=== PATIENT | male | born 1990 | race African-American/Black ===

== ENCOUNTER 2017-01-12 21:16 | Inpatient (IN) | payer OTHER ==
[2017-01-12 21:32] VITALS: BMI 26.4
--- NOTE | 2017-01-12 21:52 | HP ---
COWS - Scale Resting Pulse: 0= ID 80 or Below Sweatin=Flushed/Facial Moisture Restless Observation: 5= Unable to Sit Still Pupil Size: 1= Pupils >than Normal Bone or Joint Aches: 1= Mild Discomfort Runny Nose/ Eye Tearin= Runny Nose/Eyes GI Upset > 30mins: 0= None Tremor Observation: 1= Tremor [place], Not Seen Yawning Observation: 4= Several Times/Minute Anxiety or Irritability: 2=Irritable/Anxious Goose Flesh Skin: 0=Smooth Skin COWS Score: 18 Admission ROS S - HPI Chief Complaint: C/O WITHDRAWAL SX'S. SEEKING DETOX TXMENT Allergies/Adverse Reactions: Allergies Allergy/AdvReac Type Severity Reaction Status Date / Time No Known Allergies Allergy Verified 01/12/17 21:46 History of Present Illness: 26 Y.O. MALE WITH OPIOID DEPENDENCE ADMITTED TO DETOX. THIS IS CLIENT FIRST TIME IN DETOX. DENIES ANY SIGNIFICANT PERIOD OF CLEAN TIME. Exam Limitations: No Limitations - Ebola screening Have you traveled outside of the country in the last 21 days: No (N) Have you had contact with anyone from an Ebola affected area: No Have you been sick,other than usual withdrawal symptoms: No Do you have a fever: No - Review of Systems Constitutional: Night Sweats EENT: reports: No Symptoms Reported Respiratory: reports: No Symptoms reported Cardiac: reports: No Symptoms Reported GI: reports: No Symptoms Reported : reports: No Symptoms Reported Musculoskeletal: reports: No Symptoms Reported Integumentary: reports: No Symptoms Reported Neuro: reports: No Symptoms reported Endocrine: reports: No Symptoms Reported Hematology: reports: No Symptoms Reported Psychiatric: reports: No Sypmtoms Reported Other Systems: Reviewed and Negative Patient History - Patient Medical History Hx Anemia: No Hx Asthma: No Hx Chronic Obstructive Pulmonary Disease (COPD): No Hx Cancer: No Hx Cardiac Disorders: No Hx Congestive Heart Failure: No Hx Hypertension: No Hx Hypercholesterolemia: No Hx Pacemaker: No HX Cerebrovascular Accident: No Hx Seizures: No Hx Dementia: No Hx Diabetes: No Hx Gastrointestinal Disorders: No Hx Liver Disease: No Hx Genitourinary Disorders: No Hx Sexually Transmitted Disorders: No Hx Renal Disease (ESRD): No Hx Thyroid Disease: No Hx Human Immunodeficiency Virus (HIV): No Hx Hepatitis C: No Hx Depression: No Hx Suicide Attempt: No Hx Bipolar Disorder: No Hx Schizophrenia: No Other Medical History: DENIES - Patient Surgical History Past Surgical History: No - PPD History Previous Implant?: Yes Documented Results: Negative w/o proof Implanted On Prior R Admission?: No PPD to be Administered?: Yes - Smoking Cessation Smoking history: Current every day smoker Have you smoked in the past 12 months: Yes Aproximately how many cigarettes per day: 20 Cigars Per Day: 0 Hx Chewing Tobacco Use: No Initiated information on smoking cessation: Yes 'Breaking Loose' booklet given: 01/12/17 - Substance & Tx. History Hx Alcohol Use: No Hx Substance Use: Yes Substance Use Type: Cocaine, Heroin, Tranquilizers (PCP) Hx Substance Use Treatment: No - Substances Abused HEROIN Route: Inhalation Frequency: Daily Amount used: 6 BAGS Age of first use: 17 Date of Last Use: 01/12/17 (5 BAGS) COCAINE Route: Smoking Frequency: 3-6 times per week Amount used: $20 Age of first use: 26 Date of Last Use: 01/11/17 Family Disease History - Family Disease History Family Disease History: CA: Mother (BRAIN CA ) Admission Physical Exam S - Vital Signs Vital Signs: Vital Signs - 24 hr 01/12/17 21:28 Temperature 95.7 F L Pulse Rate 74 Respiratory 18 Rate Blood Pressure 121/69 - Physical General Appearance: Yes: Disheveled, Mild Distress, Anxious, Other (MALODUROUS) HEENTM: Yes: EOMI, Normocephalic, RUSSEL, Pharynx Normal Respiratory: Yes: Chest Non-Tender, Lungs Clear, Normal Breath Sounds, No Respiratory Distress, No Accessory Muscle Use Neck: Yes: No masses,lesions,Nodules, Supple, Trachea in good position Breast: Yes: Breast Exam Deferred Cardiology: Yes: Regular Rhythm, Regular Rate, S1, S2 Abdominal: Yes: Normal Bowel Sounds, Non Tender, Flat, Soft Genitourinary: Yes: Within Normal Limits Back: Yes: Normal Inspection Extremities: Yes: Normal Range of Motion, Non-Tender, Tremors 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 intact, Fully Oriented, Alert, Motor Strength 5/5 Integumentary: Yes: Normal Color, Dry, Warm Lymphatic: Yes: Within Normal Limits - Diagnostic (1) Opioid dependence with withdrawal Current Visit: Yes Status: Chronic (2) Cocaine dependence, uncomplicated Current Visit: Yes Status: Chronic (3) Nicotine dependence Current Visit: Yes Status: Chronic Qualifiers: Nicotine product type: cigarettes Substance use status: uncomplicated Qualified Code(s): F17.210 - Nicotine dependence, cigarettes, uncomplicated Cleared for Admission [facility] - Detox or Rehab [facility] Level of Care: Medically Managed Detox Regimen/Protocol: Methadone [facility] Breath Alcohol Content Breath Alcohol Content: 0 Urine Drug Screen - Results Drug Screen Negative: No Urine Drug Screen Results: BRENDA-Cocaine, OPI-Opiates, PCP-Phencyclidine
[2017-01-12] MEDS ORDERED: guaiFENesin/D-METHORPHAN HB 10 ML UNIT-DOSE CUPS PO PRN (21:59)
[2017-01-12] MEDS ORDERED: NICOTINE POLACRILEX 2 MG GUM BC PRN (21:59)
[2017-01-12] MEDS ORDERED: METHADONE HCL 10 MG TABLET (FOR DETOX USE ONLY) PO ONE ×2 (21:59→23:00)
[2017-01-12] MEDS ORDERED: hydrOXYzine PAMOATE 50 MG CAPSULE (FP) PO PRN (21:59)
[2017-01-12] MEDS ORDERED: MAGNESIUM HYDROX 2400MG/30ML ORAL SUSPENSION 30 ML CUP PO PRN (21:59)
[2017-01-12] MEDS ORDERED: MAGNESIUM CITRATE 300 ML BOTTLE PO PRN (21:59)
[2017-01-12] MEDS ORDERED: ACETAMINOPHEN 325 MG TABLET (FP) PO PRN (21:59)
[2017-01-12] MEDS ORDERED: LOPERAMIDE HCL 2 MG CAPSULE PO PRN (21:59)
[2017-01-12] MEDS ORDERED: IBUPROFEN 400 MG TABLET (FP) PO PRN (21:59)
[2017-01-12] MEDS ORDERED: MENTHOL/PHENOL 1 EACH UD MM PRN (21:59)
[2017-01-12] MEDS ORDERED: P-EPHED 60MG/TRIPROLIDI 2.5MG TABLET PO PRN (21:59)
[2017-01-12] MEDS ORDERED: MAG HYDROX/AL HYDROX/SIMETH 30 ML UNIT-DOSE CUP PO PRN (21:59)
[2017-01-12] MEDS: THIAMINE HCL 100 MG TABLET (FP) PO SCH (23:17)
[2017-01-12] MEDS: diazePAM 5 MG TABLET PO PRN (23:17)
[2017-01-12] MEDS: NICOTINE 21 MG/24 HOURS TOPICAL PATCH TD SCH (23:17)
[2017-01-12] MEDS: diphenhydrAMINE HCL 50 MG CAPSULE PO PRN (23:23)
[2017-01-13] MEDS ORDERED: METHADONE HCL 10 MG TABLET (FOR DETOX USE ONLY) PO ONE (10:00)
[2017-01-13] MEDS: PRENATAL VITAMINS W/ FOLIC ACID TABLET (FP) PO SCH (10:11)
[2017-01-13] MEDS: NICOTINE 21 MG/24 HOURS TOPICAL PATCH TD SCH (10:12)
[2017-01-13 10:42] LABS: MCH 29.8 pg (25.7-33.7); MCHC 32.7 g/dl (32.0-35.9); MEAN CELL VOLUME 91.2 fl (80-96); MEAN PLT VOLUME 8.1 fl (7.5-11.1); PLATELET COUNT 268 K/MM3 (134-434); WHITE BLOOD COUNT 6.3 K/mm3 (4.0-10.0)
[2017-01-13 10:46] LABS: ALBUMIN 3.2 g/dl (3.4-5.0); ANION GAP 7 (8-16); CALCIUM 8.6 mg/dL (8.5-10.1); CO2 27 mmol/L (21-32); GLUCOSE,RANDOM 81 mg/dL (74-106); SGOT/AST 22 U/L (15-37)
[2017-01-13 10:48] LABS: ALK PHOS 65 U/L (45-117); BILIRUBIN,TOTAL 0.4 mg/dL (0.2-1.0); CREATININE 0.9 mg/dL (0.7-1.3); SGPT/ALT 25 U/L (12-78); TOT PROT 6.1 g/dl (6.4-8.2)
--- NOTE | 2017-01-13 11:10 | PN ---
S COWS - Scale Resting Pulse: 0= [place] 80 or Below Sweatin=Flushed/Facial Moisture Restless Observation: 3= Extraneous Movement Pupil Size: 1= Pupils >than Normal Bone or Joint Aches: 2= Severe Diffuse Aches Runny Nose/ Eye Tearin= Runny Nose/Eyes GI Upset > 30mins: 3= Vomiting/Diarrhea Tremor Observation of Outstretched Hands: 2= Slight Tremor Visible Yawning Observation: 2= >3x During Session Anxiety or Irritability: 2=Irritable/Anxious Goose Flesh Skin: 0=Smooth Skin COWS Score: 19 S Progress Note (SOAP) Subjective: ALERT,IRRITABLE,ANXIOUS,INTERRUPTED SLEEP,TREMOR,PAIN IN THE BODY AND BACK Objective: 01/13/17 11:08 Vital Signs Temperature 97.9 F 01/13/17 06:00 Pulse Rate 50 L 01/13/17 06:00 Respiratory Rate 18 01/13/17 06:00 Blood Pressure 128/84 01/13/17 06:00 O2 Sat by Pulse Oximetry (%) EKG NSR,INVERTED T IN V2 Laboratory Last Values WBC 6.3 K/mm3 (4.0-10.0) 01/13/17 08:00 RBC 4.22 M/mm3 (4.00-5.60) 01/13/17 08:00 Hgb 12.6 GM/dL (11.7-16.9) 01/13/17 08:00 Hct 38.5 % (35.4-49) 01/13/17 08:00 MCV 91.2 fl (80-96) 01/13/17 08:00 MCHC 32.7 g/dl (32.0-35.9) 01/13/17 08:00 RDW 14.0 % (11.9-15.9) 01/13/17 08:00 Plt Count 268 K/MM3 (134-434) 01/13/17 08:00 MPV 8.1 fl (7.5-11.1) 01/13/17 08:00 Sodium 141 mmol/L (136-145) 01/13/17 08:00 Potassium 4.4 mmol/L (3.5-5.1) 01/13/17 08:00 Chloride 107 mmol/L (98-107) 01/13/17 08:00 Carbon Dioxide 27 mmol/L (21-32) 01/13/17 08:00 Anion Gap 7 (8-16) L 01/13/17 08:00 BUN 20 mg/dL (7-18) H 01/13/17 08:00 Creatinine 0.9 mg/dL (0.7-1.3) 01/13/17 08:00 Creat Clearance w eGFR > 60 (>60) 01/13/17 08:00 Random Glucose 81 mg/dL (74-106) 01/13/17 08:00 Calcium 8.6 mg/dL (8.5-10.1) 01/13/17 08:00 Total Bilirubin 0.4 mg/dL (0.2-1.0) 01/13/17 08:00 AST 22 U/L (15-37) 01/13/17 08:00 ALT 25 U/L (12-78) 01/13/17 08:00 Alkaline Phosphatase 65 U/L (45-117) 01/13/17 08:00 Total Protein 6.1 g/dl (6.4-8.2) L 01/13/17 08:00 Albumin 3.2 g/dl (3.4-5.0) L 01/13/17 08:00 LABS PENDING Assessment: 01/13/17 11:09 WITHDRAWAL SYMPTOM Plan: CONTINUE DETOX
--- NOTE | 2017-01-13 18:24 | EKG ---
Test Reason : Blood Pressure : / mmHG Vent. Rate : 061 BPM Atrial Rate : 061 BPM P-R Int : 174 ms QRS Dur : 098 ms QT Int : 394 ms P-R-T Axes : 061 072 047 degrees QTc Int : 396 ms NORMAL SINUS RHYTHM SEPTAL INFARCT , AGE UNDETERMINED ABNORMAL ECG NO PREVIOUS ECGS AVAILABLE Confirmed by DAVID HERRERA MD ([id number]) on 01/13/2017 6:24:29 PM Referred By: Confirmed By:DAVID HERRERA MD
[2017-01-13] MEDS: THIAMINE HCL 100 MG TABLET (FP) PO SCH (23:08)
[2017-01-14] MEDS ORDERED: METHADONE HCL 5 MG TABLET (FOR DETOX USE ONLY) PO ONE (10:00)
[2017-01-14] MEDS: PRENATAL VITAMINS W/ FOLIC ACID TABLET (FP) PO SCH (10:42)
[2017-01-14] MEDS: NICOTINE 21 MG/24 HOURS TOPICAL PATCH TD SCH (10:43)
--- NOTE | 2017-01-14 15:15 | PN ---
BHS COWS - Scale Resting Pulse: 0= [place] 80 or Below Sweatin= Chills/Flushing Restless Observation: 3= Extraneous Movement Pupil Size: 0= Normal to Room Light Bone or Joint Aches: 2= Severe Diffuse Aches Runny Nose/ Eye Tearin= Runny Nose/Eyes GI Upset > 30mins: 2= Nausea/Diarrhea Tremor Observation of Outstretched Hands: 2= Slight Tremor Visible Yawning Observation: 0= None Anxiety or Irritability: 1=Feels Anxious/Irritable Goose Flesh Skin: 0=Smooth Skin COWS Score: 13 BHS Progress Note (SOAP) Subjective: Nausea, sweating, interrupted sleep, anxious Objective: 01/14/17 15:14 Last Vital Signs Temp Pulse Resp BP Pulse Ox 98.2 F 71 18 137/80 01/14/17 13:56 01/14/17 13:56 01/14/17 13:56 01/14/17 13:56 Laboratory Tests 01/13/17 01/13/17 01/13/17 08:00 08:00 08:00 WBC 6.3 RBC 4.22 Hgb 12.6 Hct 38.5 MCV 91.2 MCHC 32.7 RDW 14.0 Plt Count 268 MPV 8.1 Sodium 141 Potassium 4.4 Chloride 107 Carbon Dioxide 27 Anion Gap 7 L BUN 20 H Creatinine 0.9 Creat Clearance w eGFR > 60 Random Glucose 81 Calcium 8.6 Total Bilirubin 0.4 AST 22 ALT 25 Alkaline Phosphatase 65 Total Protein 6.1 L Albumin 3.2 L RPR Titer Nonreactive Labs noted Assessment: 01/14/17 15:14 Withdrawal symptoms Plan: Continue detox
[2017-01-14] MEDS: diazePAM 5 MG TABLET PO PRN ×2 (17:31→23:49)
[2017-01-14] MEDS: THIAMINE HCL 100 MG TABLET (FP) PO SCH (23:11)
[2017-01-15] MEDS ORDERED: METHADONE HCL 5 MG TABLET (FOR DETOX USE ONLY) PO ONE (10:00)
[2017-01-15] MEDS: NICOTINE 21 MG/24 HOURS TOPICAL PATCH TD SCH (10:07)
[2017-01-15] MEDS: PRENATAL VITAMINS W/ FOLIC ACID TABLET (FP) PO SCH (10:08)
[2017-01-15] MEDS: diazePAM 5 MG TABLET PO PRN ×4 (10:08→21:56)
--- NOTE | 2017-01-15 10:42 | PN ---
BHS Progress Note (SOAP) Subjective: irritable agitation headache sweats Objective: 01/15/17 10:42 Vital Signs Temperature 98.1 F 01/15/17 10:00 Pulse Rate 71 01/15/17 10:00 Respiratory Rate 20 01/15/17 10:00 Blood Pressure 133/85 01/15/17 10:00 O2 Sat by Pulse Oximetry (%) awake/alert lying in bed no acute distress Assessment: 01/15/17 10:42 withdrawal sx Plan: continue detox increase fluids motrin/tylenol prn
[2017-01-15 17:08] LABS: URINE APPEARANCE CLEAR; URINE BILIRUBIN NEGATIVE (NEGATIVE); URINE BLOOD NEGATIVE (NEGATIVE); URINE COLOR LTYELLOW; URINE GLUCOSE (UA) NEGATIVE (NEGATIVE); URINE KETONE NEGATIVE (NEGATIVE); URINE LEUK ESTERASE NEGATIVE (NEGATIVE); URINE NITRITE NEGATIVE (NEGATIVE); URINE PROTEIN NEGATIVE (NEGATIVE); URINE UROBILINOGEN NEGATIVE E.U./dl (0.2-1.0)
[2017-01-15] MEDS: diphenhydrAMINE HCL 50 MG CAPSULE PO PRN (21:56)
[2017-01-15] MEDS: THIAMINE HCL 100 MG TABLET (FP) PO SCH (21:57)
[2017-01-16] MEDS ORDERED: METHADONE HCL 10 MG TABLET (FOR DETOX USE ONLY) PO ONE (10:00)
[2017-01-16] MEDS: NICOTINE 21 MG/24 HOURS TOPICAL PATCH TD SCH (10:09)
[2017-01-16] MEDS: PRENATAL VITAMINS W/ FOLIC ACID TABLET (FP) PO SCH (10:09)
--- NOTE | 2017-01-16 10:29 | PN ---
S Progress Note (SOAP) Subjective: ALERT,IRRITABLE,ANXIOUS,INTERRUPTED SLEEP Objective: 01/16/17 10:28 Vital Signs Temperature 98.4 F 01/16/17 09:55 Pulse Rate 77 01/16/17 09:55 Respiratory Rate 16 01/16/17 09:55 Blood Pressure 138/66 01/16/17 09:55 O2 Sat by Pulse Oximetry (%) Assessment: 01/16/17 10:29 WITHDRAWAL SYMPTOM Plan: DISCHARGE IN AM
[2017-01-16] MEDS: THIAMINE HCL 100 MG TABLET (FP) PO SCH (21:48)
[2017-01-17] MEDS ORDERED: METHADONE HCL 5 MG TABLET (FOR DETOX USE ONLY) PO ONE (06:00)
[2017-01-17 06:42] VITALS: BP 139/80; PULSE 68; TEMP 98
--- NOTE | 2017-01-17 08:40 | DS ---
[facility] Detox Discharge Summary Admission Date: 01/12/17 Discharge Date: 01/17/17 - History Present History: Cocaine Dependence, Opioid Dependence - Physical Exam Results Vital Signs: Vital Signs Temperature 98 F 01/17/17 06:42 Pulse Rate 68 01/17/17 06:42 Respiratory Rate 18 01/17/17 06:42 Blood Pressure 139/80 01/17/17 06:42 O2 Sat by Pulse Oximetry (%) - Treatment Hospital Course: Detox Protocol Followed, Detoxed Safely, Responded well, Discharged Condition Good, Rehab Referral Accepted - Medication Discharge Medications: Ambulatory Orders NK [No Known Home Medication] 01/12/17 - Diagnosis (1) Cocaine dependence, uncomplicated Current Visit: Yes Status: Chronic (2) Nicotine dependence Current Visit: Yes Status: Chronic Qualifiers: Nicotine product type: cigarettes Substance use status: uncomplicated Qualified Code(s): F17.210 - Nicotine dependence, cigarettes, uncomplicated (3) Opioid dependence with withdrawal Current Visit: Yes Status: Chronic - AMA Did Patient Leave Against Medical Advice: No
== END 2017-01-17 09:55 | disposition home or self-care (01) | DRG 773 ==
LOC: YASAS 21:16 → Y6N 22:06
PROVIDERS: ADMIT Internal Medicine; ATTEND Internal Medicine
PROC: HZ2ZZZZ Detoxification Services for Substance Abuse Treatment (ICD-10-PCS; principal; 2017-01-12)
DX: F11.23 Opioid dependence with withdrawal (principal); F14.20 Cocaine dependence, uncomplicated; F17.210 Nicotine dependence, cigarettes, uncomplicated
CPT/HCPCS: 36415; 80053; 81003; 85027; 86593; 93005; 93010

== ENCOUNTER 2017-03-06 00:30 | Inpatient (IN) | payer OTHER ==
--- NOTE | 2017-03-06 00:39 | HP ---
COWS - Scale Resting Pulse: 0= [place] 80 or Below Sweatin=Flushed/Facial Moisture Restless Observation: 5= Unable to Sit Still Pupil Size: 1= Pupils >than Normal Bone or Joint Aches: 4=Acute Joint/Muscle Pain Runny Nose/ Eye Tearin= None GI Upset > 30mins: 2= Nausea/Diarrhea Tremor Observation: 2= Slight Tremor Visible Yawning Observation: 0= None Anxiety or Irritability: 2=Irritable/Anxious Goose Flesh Skin: 0=Smooth Skin COWS Score: 18 Admission ROS S - HPI Chief Complaint: c/o herione abuse and withdrawal sx's. seeking detox txment Allergies/Adverse Reactions: Allergies Allergy/AdvReac Type Severity Reaction Status Date / Time No Known Allergies Allergy Verified 03/06/17 00:34 History of Present Illness: 27 Y.O. MALE WITH OPIATE, COCAINE, PCP DEPENDENCE ADMITTED FOR DETOX TXMENT. CLIENT IS KNOWN TO [facility]. LAST HERE 12/2016. SELF REFERRED. DENIES ANY SIGNIFICANT CLEAN TIME. Exam Limitations: No Limitations - Ebola screening Have you traveled outside of the country in the last 21 days: No Have you had contact with anyone from an Ebola affected area: No Have you been sick,other than usual withdrawal symptoms: No Do you have a fever: No - Review of Systems Constitutional: Chills, Malaise, Night Sweats EENT: reports: No Symptoms Reported, Other Respiratory: reports: No Symptoms reported Cardiac: reports: No Symptoms Reported GI: reports: Nausea, Abdominal cramping Musculoskeletal: reports: No Symptoms Reported Integumentary: reports: No Symptoms Reported Neuro: reports: No Symptoms reported Endocrine: reports: No Symptoms Reported Hematology: reports: No Symptoms Reported Psychiatric: reports: Anxious, Depressed Other Systems: Reviewed and Negative Patient History - Patient Medical History Hx Anemia: No Hx Asthma: No Hx Chronic Obstructive Pulmonary Disease (COPD): No Hx Cancer: No Hx Cardiac Disorders: No Hx Congestive Heart Failure: No Hx Hypertension: No Hx Hypercholesterolemia: No Hx Pacemaker: No HX Cerebrovascular Accident: No Hx Seizures: No Hx Dementia: No Hx Diabetes: No Hx Gastrointestinal Disorders: No Hx Liver Disease: No Hx Genitourinary Disorders: No Hx Sexually Transmitted Disorders: No Hx Renal Disease (ESRD): No Hx Thyroid Disease: No Hx Human Immunodeficiency Virus (HIV): No Hx Hepatitis C: No Hx Depression: Yes Hx Suicide Attempt: No Hx Bipolar Disorder: No Hx Schizophrenia: No - Patient Surgical History Past Surgical History: No Hx Neurologic Surgery: No Hx Cataract Extraction: No Hx Cardiac Surgery: No Hx Lung Surgery: No Hx Breast Surgery: No Hx Breast Biopsy: No Hx Abdominal Surgery: No Hx Appendectomy: No Hx Cholecystectomy: No Hx Genitourinary Surgery: No Hx Section: No Hx Orthopedic Surgery: No Anesthesia Reaction: No - PPD History Previous Implant?: Yes Documented Results: Negative w/proof Implanted On Prior [facility] Admission?: Yes Date: 01/14/17 Results: 0MM PPD to be Administered?: No - Smoking Cessation Smoking history: Current every day smoker Have you smoked in the past 12 months: Yes Aproximately how many cigarettes per day: 20 Cigars Per Day: 0 Hx Chewing Tobacco Use: No Initiated information on smoking cessation: Yes 'Breaking Loose' booklet given: 03/06/17 - Substance & Tx. History Hx Alcohol Use: No Hx Substance Use: Yes Substance Use Type: Cocaine, Heroin, Tranquilizers (PCP) Hx Substance Use Treatment: Yes ([facility]) - Substances Abused HEROINE Route: Inhalation Frequency: Daily Amount used: 15 BAGS Age of first use: 14 Date of Last Use: 03/05/17 (7 BAGS) COCAINE Route: Inhalation Frequency: 3-6 times per week Amount used: 1GM Age of first use: 23 Date of Last Use: 03/10/17 PCP Route: Smoking Frequency: 3-6 times per week Amount used: 2 BAGS Age of first use: 20 Date of Last Use: 03/03/17 Family Disease History - Family Disease History Family Disease History: [place]: Mother (BRAIN CA ) Admission Physical Exam [facility] Physical General Appearance: Yes: Disheveled, Tremorous, Irritable, Anxious HEENTM: Yes: EOMI, Normocephalic, Pharynx Normal, Other (POOR DENTITION) Respiratory: Yes: Chest Non-Tender, Lungs Clear, Normal Breath Sounds, No Respiratory Distress, No Accessory Muscle Use Neck: Yes: No masses,lesions,Nodules, Supple, Trachea in good position Breast: Yes: Breast Exam Deferred Cardiology: Yes: Regular Rhythm, Regular Rate, S1, S2 Abdominal: Yes: Normal Bowel Sounds, Non Tender, Flat, Soft Genitourinary: Yes: Within Normal Limits Back: Yes: Normal Inspection Musculoskeletal: Yes: full range of Motion, Gait Steady Extremities: Yes: Normal Range of Motion, Tremors 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, Fully Oriented, Alert, Motor Strength 5/5 Integumentary: Yes: Normal Color, Dry, Warm Lymphatic: Yes: Within Normal Limits - Diagnostic (1) Cocaine dependence, uncomplicated Current Visit: Yes Status: Chronic (2) Nicotine dependence Current Visit: Yes Status: Chronic Qualifiers: Nicotine product type: cigarettes Substance use status: uncomplicated Qualified Code(s): F17.210 - Nicotine dependence, cigarettes, uncomplicated (3) Opioid dependence with withdrawal Current Visit: Yes Status: Chronic Cleared for Admission S - Detox or Rehab S Level of Care: Medically Managed Detox Regimen/Protocol: Methadone S Breath Alcohol Content Breath Alcohol Content: 0 Vital Signs - Vital Signs Vital Signs Refused: No Temperature: 98.4 F Temperature Source: Oral Pulse Rate: 74 Respiratory Rate: 20 Blood Pressure: 141/86 BP Location: Left Arm Blood Pressure Position: Sitting - Height Height: 5 ft 11 in - Weight Weight: 97.522 kg Weight Measurement Method: Standing Scale Body Mass Index (BMI): 29.9 - Bowel Function Bowel Movement: Yes Urine Drug Screen - Test Device Lot Number: [id number] Expiration Date: 09/20/18 - Control Is Test Valid: Yes - Results Drug Screen Negative: No Urine Drug Screen Results: BRENDA-Cocaine, OPI-Opiates, PCP-Phencyclidine
[2017-03-06 00:45] VITALS: BMI 29.9
[2017-03-06] MEDS ORDERED: MAG HYDROX/AL HYDROX/SIMETH 30 ML UNIT-DOSE CUP PO PRN (00:48)
[2017-03-06] MEDS ORDERED: MENTHOL/PHENOL 1 EACH UD MM PRN (00:48)
[2017-03-06] MEDS ORDERED: MAGNESIUM CITRATE 300 ML BOTTLE PO PRN (00:48)
[2017-03-06] MEDS ORDERED: hydrOXYzine PAMOATE 50 MG CAPSULE (FP) PO PRN (00:48)
[2017-03-06] MEDS ORDERED: METHADONE HCL 10 MG TABLET (FOR DETOX USE ONLY) PO ONE ×3 (00:48→23:00)
[2017-03-06] MEDS ORDERED: P-EPHED 60MG/TRIPROLIDI 2.5MG TABLET PO PRN (00:48)
[2017-03-06] MEDS ORDERED: LOPERAMIDE HCL 2 MG CAPSULE PO PRN (00:48)
[2017-03-06] MEDS ORDERED: IBUPROFEN 400 MG TABLET (FP) PO PRN (00:48)
[2017-03-06] MEDS ORDERED: MAGNESIUM HYDROX 2400MG/30ML ORAL SUSPENSION 30 ML CUP PO PRN (00:48)
[2017-03-06] MEDS ORDERED: ACETAMINOPHEN 325 MG TABLET (FP) PO PRN (00:48)
[2017-03-06] MEDS ORDERED: diazePAM 5 MG TABLET ONE (01:02)
[2017-03-06] MEDS: diazePAM 5 MG TABLET PO PRN ×3 (01:04→19:16)
[2017-03-06] MEDS: PRENATAL VITAMINS W/ FOLIC ACID TABLET (FP) PO SCH (10:23)
[2017-03-06] MEDS: NICOTINE 21 MG/24 HOURS TOPICAL PATCH TD SCH ×2 (10:23→11:10)
[2017-03-06 10:36] LABS: MCH 30.5 pg (25.7-33.7); MCHC 33.1 g/dl (32.0-35.9); MEAN CELL VOLUME 92.1 fl (80-96); MEAN PLT VOLUME 8.7 fl (7.5-11.1); PLATELET COUNT 290 K/MM3 (134-434); RDW 15.8 % (11.9-15.9); WHITE BLOOD COUNT 5.8 K/mm3 (4.0-10.0)
--- NOTE | 2017-03-06 10:49 | PN ---
S Progress Note Note: Pt. was admitted earlier today,c/o withdrawal sx. Vital Signs - 8 hr 03/06/17 03/06/17 03:37 06:26 Temperature 96.7 F L Pulse Rate 62 Respiratory 18 18 Rate Blood Pressure 127/71 Laboratory Tests 03/06/17 07:00 WBC 5.8 RBC 4.07 Hgb 12.4 Hct 37.4 MCV 92.1 MCHC 33.1 RDW 15.8 D Plt Count 290 MPV 8.7 Continue detox
[2017-03-06 11:06] LABS: ALK PHOS 74 U/L (45-117); ANION GAP 12 (8-16); BILIRUBIN,TOTAL 0.6 mg/dL (0.2-1.0); CALCIUM 9.1 mg/dL (8.5-10.1); CO2 26 mmol/L (21-32); COCKROFT - GAULT 136.67; CREATININE 1.1 mg/dL (0.7-1.3); GLUCOSE,RANDOM 87 mg/dL (74-106); SGOT/AST 43 U/L (15-37); SGPT/ALT 36 U/L (12-78); TOT PROT 7.2 g/dl (6.4-8.2)
[2017-03-06] MEDS: guaiFENesin/D-METHORPHAN HB 10 ML UNIT-DOSE CUPS PO PRN ×2 (11:58→19:20)
[2017-03-06] MEDS: NICOTINE POLACRILEX 4 MG GUM BUC PRN (11:59)
[2017-03-06 12:39] LABS: HIV 1 & 2 AB NEGATIVE; HIV 1 AGp24 NEGATIVE
--- NOTE | 2017-03-06 12:44 | CONSULT ---
[facility] Psychiatric Consult - Data Date of interview: 03/06/17 Admission source: [facility] Identifying data: Readmission to [facility] for this 27 y/o AA male seeking detox treatment on for heroin,cocaine and phencyclidine dependence.Patient is single,a father of one,homeless,unemployed and reportedly deprived of any financial support. Substance Abuse History: - Smoking Cessation. Smoking history: Current every day smoker. Have you smoked in the past 12 months: Yes. Aproximately how many cigarettes per day: 20. Cigars Per Day: 0. Hx Chewing Tobacco Use: No. Initiated information on smoking cessation: Yes. 'Breaking Loose' booklet given : 03/06/17. - Substance & Tx. History. Hx Alcohol Use: No. Hx Substance Use: Yes. Substance Use Type: Cocaine, Heroin, Tranquilizers (PCP). Hx Substance Use Treatment: Yes ([facility]). - Substances Abused. HEROINE. Route: Inhalation. Frequency: Daily. Amount used: 15 BAGS. Age of first use: 14. Date of Last Use: 03/05/17 (7 BAGS). COCAINE. Route: Inhalation. Frequency : 3-6 times per week. Amount used: 1GM. Age of first use: 23. Date of Last Use: 03/10/17. PCP. Route: Smoking. Frequency: 3-6 times per week. Amount used: 2 BAGS. Age of first use: 20. Date of Last Use: 03/03/17. Confirmed by patient. Medical History: Patient endorses good general health. Psychiatric History: Patient reports a recent psychiatric hospitalization ([facility]) two months ago.Precipitants : suicide attempt via wrist -cutting at the of his grand-mother.Diagnosed with Bipolar Disorder and prescribed xanax,risperdal,wellbutrin.Mr Robbins admits to ignoring post discharge referrals and did not adhere to his aftercare arrangements.No medications taken.Totally lost to follow up.Patient remains ambivalent about resuming psychotropic medications. Physical/Sexual Abuse/Trauma History: No reported history of abuse.Traumatized by the of his grand mother. Additional Comment: Urine Drug Screen Results: BRENDA-Cocaine, OPI-Opiates, PCP- Phencyclidine.Noted. Mental Status Exam - Mental Status Exam Alert and Oriented to: Time, Place, Person Cognitive Function: Good Patient Appearance: Well Groomed Mood: Withdrawn, Anxious Affect: Mood Congruent Patient Behavior: Fatigued, Appropriate, Cooperative Speech Pattern: Clear, Appropriate Voice Loudness: Normal Thought Process: Goal Oriented Thought Disorder: Not Present Hallucinations: Denies Suicidal Ideation: Denies Homicidal Ideation: Denies Insight/Judgement: Poor Sleep: Fair Appetite: Good Muscle strength/Tone: Normal Gait/Station: Normal Psychiatric Findings - Problem List ([place] 1, 2,3) (1) Cocaine dependence, uncomplicated Current Visit: Yes Status: Acute (2) Opioid dependence with withdrawal Current Visit: Yes Status: Acute (3) Nicotine dependence Current Visit: Yes Status: Acute Qualifiers: Nicotine product type: cigarettes Substance use status: uncomplicated Qualified Code(s): F17.210 - Nicotine dependence, cigarettes, uncomplicated (4) PCP dependence Current Visit: Yes Status: Acute (5) Substance induced mood disorder Current Visit: Yes Status: Acute - Initial Treatment Plan Initial Treatment Plan: Psychoeducation.Detoxification.Observation.
--- NOTE | 2017-03-06 17:20 | EKG ---
Test Reason : Blood Pressure : / mmHG Vent. Rate : 063 BPM Atrial Rate : 063 BPM P-R Int : 166 ms QRS Dur : 092 ms QT Int : 394 ms P-R-T Axes : 058 076 048 degrees QTc Int : 403 ms NORMAL SINUS RHYTHM CANNOT RULE OUT SEPTAL INFARCT (CITED ON OR BEFORE 12-JAN-2017) ABNORMAL ECG WHEN COMPARED WITH ECG OF 12-JAN-2017 22:31, NO SIGNIFICANT CHANGE WAS FOUND Confirmed by WALTER COBB MD ([id number]) on 03/06/2017 5:19:39 PM Referred By: Confirmed By:WALTER COBB MD
[2017-03-06] MEDS: diphenhydrAMINE HCL 50 MG CAPSULE PO PRN (22:12)
[2017-03-06] MEDS: THIAMINE HCL 100 MG TABLET (FP) PO SCH (22:12)
[2017-03-07] MEDS: diazePAM 5 MG TABLET PO PRN (05:45)
[2017-03-07] MEDS ORDERED: CYCLOBENZAPRINE HCL 10 MG TABLET (FP) PO PRN (09:01)
[2017-03-07] MEDS ORDERED: cloNIDine HCL 0.1 MG TABLET PO ONE (09:02)
[2017-03-07] MEDS ORDERED: CYCLOBENZAPRINE HCL 10 MG TABLET (FP) PO ONE (09:02)
[2017-03-07] MEDS ORDERED: METHADONE HCL 10 MG TABLET (FOR DETOX USE ONLY) PO ONE (10:00)
[2017-03-07] MEDS: PRENATAL VITAMINS W/ FOLIC ACID TABLET (FP) PO SCH (10:14)
[2017-03-07] MEDS: NICOTINE 21 MG/24 HOURS TOPICAL PATCH TD SCH (10:18)
[2017-03-07] MEDS: cloNIDine HCL 0.1 MG TABLET PO SCH ×2 (10:18→22:33)
--- NOTE | 2017-03-07 10:19 | PN ---
S COWS - Scale Resting Pulse: 0= [place] 80 or Below Sweatin= Chills/Flushing Restless Observation: 3= Extraneous Movement Pupil Size: 1= Pupils >than Normal Bone or Joint Aches: 2= Severe Diffuse Aches Runny Nose/ Eye Tearin= Runny Nose/Eyes GI Upset > 30mins: 3= Vomiting/Diarrhea Tremor Observation of Outstretched Hands: 2= Slight Tremor Visible Yawning Observation: 1= 1-2x During Session Anxiety or Irritability: 2=Irritable/Anxious Goose Flesh Skin: 0=Smooth Skin COWS Score: 17 S Progress Note (SOAP) Subjective: ALERT,IRRITABLE,ANXIOUS,INTERRUPTED SLEEP,TREMOR,PAIN IN THE BODY AND BACK Objective: 03/07/17 10:16 Vital Signs Temperature 98.1 F 03/07/17 09:59 Pulse Rate 69 03/07/17 09:59 Respiratory Rate 18 03/07/17 09:59 Blood Pressure 129/79 03/07/17 09:59 O2 Sat by Pulse Oximetry (%) 03/07/17 10:16 EKG NSR 63/MIN NO CHEST PAIN,NO SOB,NO DIZZINESS Laboratory Last Values WBC 5.8 K/mm3 (4.0-10.0) 03/06/17 07:00 RBC 4.07 M/mm3 (4.00-5.60) 03/06/17 07:00 Hgb 12.4 GM/dL (11.7-16.9) 03/06/17 07:00 Hct 37.4 % (35.4-49) 03/06/17 07:00 MCV 92.1 fl (80-96) 03/06/17 07:00 MCHC 33.1 g/dl (32.0-35.9) 03/06/17 07:00 RDW 15.8 % (11.9-15.9) D 03/06/17 07:00 Plt Count 290 K/MM3 (134-434) 03/06/17 07:00 MPV 8.7 fl (7.5-11.1) 03/06/17 07:00 Sodium 142 mmol/L (136-145) 03/06/17 07:00 Potassium 4.0 mmol/L (3.5-5.1) 03/06/17 07:00 Chloride 104 mmol/L (98-107) 03/06/17 07:00 Carbon Dioxide 26 mmol/L (21-32) 03/06/17 07:00 Anion Gap 12 (8-16) 03/06/17 07:00 BUN 22 mg/dL (7-18) H 03/06/17 07:00 Creatinine 1.1 mg/dL (0.7-1.3) D 03/06/17 07:00 Creat Clearance w eGFR > 60 (>60) 03/06/17 07:00 Random Glucose 87 mg/dL (74-106) 03/06/17 07:00 Calcium 9.1 mg/dL (8.5-10.1) 03/06/17 07:00 Total Bilirubin 0.6 mg/dL (0.2-1.0) D 03/06/17 07:00 AST 43 U/L (15-37) H D 03/06/17 07:00 ALT 36 U/L (12-78) D 03/06/17 07:00 Alkaline Phosphatase 74 U/L (45-117) 03/06/17 07:00 Total Protein 7.2 g/dl (6.4-8.2) 03/06/17 07:00 Albumin 4.0 g/dl (3.4-5.0) D 03/06/17 07:00 RPR Titer Nonreactive (NONREACTIVE) 03/06/17 07:00 Hepatitis C Antibody <0.1 s/co ratio (0.0-0.9) 03/06/17 07:00 HIV 1&2 Antibody Screen Negative 03/06/17 07:00 HIV P24 Antigen Negative 03/06/17 07:00 Assessment: 03/07/17 10:18 WITHDRAWAL SYMPTOM Plan: CONTINUE DETOX
[2017-03-07] MEDS: guaiFENesin/D-METHORPHAN HB 10 ML UNIT-DOSE CUPS PO PRN (18:12)
[2017-03-07 21:53] LABS: URINE APPEARANCE CLEAR; URINE BILIRUBIN NEGATIVE (NEGATIVE); URINE BLOOD NEGATIVE (NEGATIVE); URINE COLOR LTYELLOW; URINE GLUCOSE (UA) NEGATIVE (NEGATIVE); URINE KETONE NEGATIVE (NEGATIVE); URINE LEUK ESTERASE NEGATIVE (NEGATIVE); URINE NITRITE NEGATIVE (NEGATIVE); URINE PROTEIN NEGATIVE (NEGATIVE); URINE UROBILINOGEN NEGATIVE E.U./dl (0.2-1.0)
[2017-03-07] MEDS: THIAMINE HCL 100 MG TABLET (FP) PO SCH (22:33)
[2017-03-08] MEDS: guaiFENesin/D-METHORPHAN HB 10 ML UNIT-DOSE CUPS PO PRN (01:03)
[2017-03-08] MEDS: diazePAM 5 MG TABLET PO PRN (05:21)
[2017-03-08] MEDS ORDERED: METHADONE HCL 5 MG TABLET (FOR DETOX USE ONLY) PO ONE (10:00)
--- NOTE | 2017-03-08 10:27 | PN ---
BHS COWS - Scale Resting Pulse: 0= [place] 80 or Below Sweatin=Flushed/Facial Moisture Restless Observation: 1= Difficult to Sit Still Pupil Size: 0= Normal to Room Light Bone or Joint Aches: 2= Severe Diffuse Aches Runny Nose/ Eye Tearin= Nasal Congestion GI Upset > 30mins: 2= Nausea/Diarrhea Tremor Observation of Outstretched Hands: 2= Slight Tremor Visible Yawning Observation: 1= 1-2x During Session Anxiety or Irritability: 2=Irritable/Anxious Goose Flesh Skin: 0=Smooth Skin COWS Score: 13 BHS Progress Note (SOAP) Subjective: Sweating,interrupted sleep,restless,muscle aches/spasm Objective: 03/08/17 10:23 Vital Signs - 8 hr 03/08/17 03/08/17 03/08/17 03:21 06:09 09:22 Temperature 98.2 F 98.4 F Pulse Rate 53 L 61 Respiratory 18 18 18 Rate Blood Pressure 100/62 102/65 Laboratory Last Values WBC 5.8 K/mm3 (4.0-10.0) 03/06/17 07:00 RBC 4.07 M/mm3 (4.00-5.60) 03/06/17 07:00 Hgb 12.4 GM/dL (11.7-16.9) 03/06/17 07:00 Hct 37.4 % (35.4-49) 03/06/17 07:00 MCV 92.1 fl (80-96) 03/06/17 07:00 MCHC 33.1 g/dl (32.0-35.9) 03/06/17 07:00 RDW 15.8 % (11.9-15.9) D 03/06/17 07:00 Plt Count 290 K/MM3 (134-434) 03/06/17 07:00 MPV 8.7 fl (7.5-11.1) 03/06/17 07:00 Sodium 142 mmol/L (136-145) 03/06/17 07:00 Potassium 4.0 mmol/L (3.5-5.1) 03/06/17 07:00 Chloride 104 mmol/L (98-107) 03/06/17 07:00 Carbon Dioxide 26 mmol/L (21-32) 03/06/17 07:00 Anion Gap 12 (8-16) 03/06/17 07:00 BUN 22 mg/dL (7-18) H 03/06/17 07:00 Creatinine 1.1 mg/dL (0.7-1.3) D 03/06/17 07:00 Creat Clearance w eGFR > 60 (>60) 03/06/17 07:00 Random Glucose 87 mg/dL (74-106) 03/06/17 07:00 Calcium 9.1 mg/dL (8.5-10.1) 03/06/17 07:00 Total Bilirubin 0.6 mg/dL (0.2-1.0) D 03/06/17 07:00 AST 43 U/L (15-37) H D 03/06/17 07:00 ALT 36 U/L (12-78) D 03/06/17 07:00 Alkaline Phosphatase 74 U/L (45-117) 03/06/17 07:00 Total Protein 7.2 g/dl (6.4-8.2) 03/06/17 07:00 Albumin 4.0 g/dl (3.4-5.0) D 03/06/17 07:00 Urine Color Ltyellow 03/07/17 21:00 Urine Appearance Clear 03/07/17 21:00 Urine pH 6.0 (5.0-8.0) 03/07/17 21:00 Ur Specific [place] 1.020 (1.005-1.025) 03/07/17 21:00 Urine Protein Negative (NEGATIVE) 03/07/17 21:00 Urine Glucose (UA) Negative (NEGATIVE) 03/07/17 21:00 Urine Ketones Negative (NEGATIVE) 03/07/17 21:00 Urine Blood Negative (NEGATIVE) 03/07/17 21:00 Urine Nitrite Negative (NEGATIVE) 03/07/17 21:00 Urine Bilirubin Negative (NEGATIVE) 03/07/17 21:00 Urine Urobilinogen Negative E.U./dl (0.2-1.0) 03/07/17 21:00 Ur Leukocyte Esterase Negative (NEGATIVE) 03/07/17 21:00 RPR Titer Nonreactive (NONREACTIVE) 03/06/17 07:00 Hepatitis C Antibody <0.1 s/co ratio (0.0-0.9) 03/06/17 07:00 HIV 1&2 Antibody Screen Negative 03/06/17 07:00 HIV P24 Antigen Negative 03/06/17 07:00 labs noted Assessment: 03/08/17 10:23 Withdrawal sx. Plan: Continue detox
[2017-03-08] MEDS: PRENATAL VITAMINS W/ FOLIC ACID TABLET (FP) PO SCH (10:37)
[2017-03-08] MEDS: cloNIDine HCL 0.1 MG TABLET PO SCH ×2 (10:37→22:11)
[2017-03-08] MEDS: NICOTINE 21 MG/24 HOURS TOPICAL PATCH TD SCH (10:38)
[2017-03-08] MEDS: NICOTINE POLACRILEX 4 MG GUM BUC PRN (21:07)
[2017-03-08] MEDS: diphenhydrAMINE HCL 50 MG CAPSULE PO PRN (22:11)
[2017-03-08] MEDS: THIAMINE HCL 100 MG TABLET (FP) PO SCH (22:11)
[2017-03-09] MEDS ORDERED: METHADONE HCL 5 MG TABLET (FOR DETOX USE ONLY) PO ONE (10:00)
[2017-03-09] MEDS: PRENATAL VITAMINS W/ FOLIC ACID TABLET (FP) PO SCH (10:29)
[2017-03-09] MEDS: cloNIDine HCL 0.1 MG TABLET PO SCH (10:29)
[2017-03-09] MEDS: NICOTINE 21 MG/24 HOURS TOPICAL PATCH TD SCH (10:29)
--- NOTE | 2017-03-09 12:09 | PN ---
BHS Progress Note (SOAP) Subjective: Sweating,interrupted sleep,restless Objective: 03/09/17 12:07 Vital Signs - 8 hr 03/09/17 03/09/17 06:12 09:43 Temperature 98.1 F 97.8 F Pulse Rate 48 L 57 L Respiratory 16 16 Rate Blood Pressure 107/66 109/63 Laboratory Last Values WBC 5.8 K/mm3 (4.0-10.0) 03/06/17 07:00 RBC 4.07 M/mm3 (4.00-5.60) 03/06/17 07:00 Hgb 12.4 GM/dL (11.7-16.9) 03/06/17 07:00 Hct 37.4 % (35.4-49) 03/06/17 07:00 MCV 92.1 fl (80-96) 03/06/17 07:00 MCHC 33.1 g/dl (32.0-35.9) 03/06/17 07:00 RDW 15.8 % (11.9-15.9) D 03/06/17 07:00 Plt Count 290 K/MM3 (134-434) 03/06/17 07:00 MPV 8.7 fl (7.5-11.1) 03/06/17 07:00 Sodium 142 mmol/L (136-145) 03/06/17 07:00 Potassium 4.0 mmol/L (3.5-5.1) 03/06/17 07:00 Chloride 104 mmol/L (98-107) 03/06/17 07:00 Carbon Dioxide 26 mmol/L (21-32) 03/06/17 07:00 Anion Gap 12 (8-16) 03/06/17 07:00 BUN 22 mg/dL (7-18) H 03/06/17 07:00 Creatinine 1.1 mg/dL (0.7-1.3) D 03/06/17 07:00 Creat Clearance w eGFR > 60 (>60) 03/06/17 07:00 Random Glucose 87 mg/dL (74-106) 03/06/17 07:00 Calcium 9.1 mg/dL (8.5-10.1) 03/06/17 07:00 Total Bilirubin 0.6 mg/dL (0.2-1.0) D 03/06/17 07:00 AST 43 U/L (15-37) H D 03/06/17 07:00 ALT 36 U/L (12-78) D 03/06/17 07:00 Alkaline Phosphatase 74 U/L (45-117) 03/06/17 07:00 Total Protein 7.2 g/dl (6.4-8.2) 03/06/17 07:00 Albumin 4.0 g/dl (3.4-5.0) D 03/06/17 07:00 Urine Color Ltyellow 03/07/17 21:00 Urine Appearance Clear 03/07/17 21:00 Urine pH 6.0 (5.0-8.0) 03/07/17 21:00 Ur Specific [place] 1.020 (1.005-1.025) 03/07/17 21:00 Urine Protein Negative (NEGATIVE) 03/07/17 21:00 Urine Glucose (UA) Negative (NEGATIVE) 03/07/17 21:00 Urine Ketones Negative (NEGATIVE) 03/07/17 21:00 Urine Blood Negative (NEGATIVE) 03/07/17 21:00 Urine Nitrite Negative (NEGATIVE) 03/07/17 21:00 Urine Bilirubin Negative (NEGATIVE) 03/07/17 21:00 Urine Urobilinogen Negative E.U./dl (0.2-1.0) 03/07/17 21:00 Ur Leukocyte Esterase Negative (NEGATIVE) 03/07/17 21:00 RPR Titer Nonreactive (NONREACTIVE) 03/06/17 07:00 Hepatitis C Antibody <0.1 s/co ratio (0.0-0.9) 03/06/17 07:00 HIV 1&2 Antibody Screen Negative 03/06/17 07:00 HIV P24 Antigen Negative 03/06/17 07:00 labs noted Assessment: 03/09/17 12:08 Withdrawal sx. Plan: Continue detox
[2017-03-09 13:04] VITALS: BP 108/63; PULSE 55; TEMP 97.4
--- NOTE | 2017-03-09 16:29 | DS ---
[facility] Detox Discharge Summary Admission Date: 03/06/17 Discharge Date: 03/09/17 - History Present History: Cocaine Dependence, Opioid Dependence Pertinent Past History: Mood disorder - Physical Exam Results Vital Signs: Vital Signs Temperature 97.4 F L 03/09/17 13:03 Pulse Rate 55 L 03/09/17 13:03 Respiratory Rate 18 03/09/17 13:03 Blood Pressure 108/63 03/09/17 13:03 O2 Sat by Pulse Oximetry (%) Pertinent Admission Physical Exam Findings: Withdrawal sx. Laboratory Last Values WBC 5.8 K/mm3 (4.0-10.0) 03/06/17 07:00 RBC 4.07 M/mm3 (4.00-5.60) 03/06/17 07:00 Hgb 12.4 GM/dL (11.7-16.9) 03/06/17 07:00 Hct 37.4 % (35.4-49) 03/06/17 07:00 MCV 92.1 fl (80-96) 03/06/17 07:00 MCHC 33.1 g/dl (32.0-35.9) 03/06/17 07:00 RDW 15.8 % (11.9-15.9) D 03/06/17 07:00 Plt Count 290 K/MM3 (134-434) 03/06/17 07:00 MPV 8.7 fl (7.5-11.1) 03/06/17 07:00 Sodium 142 mmol/L (136-145) 03/06/17 07:00 Potassium 4.0 mmol/L (3.5-5.1) 03/06/17 07:00 Chloride 104 mmol/L (98-107) 03/06/17 07:00 Carbon Dioxide 26 mmol/L (21-32) 03/06/17 07:00 Anion Gap 12 (8-16) 03/06/17 07:00 BUN 22 mg/dL (7-18) H 03/06/17 07:00 Creatinine 1.1 mg/dL (0.7-1.3) D 03/06/17 07:00 Creat Clearance w eGFR > 60 (>60) 03/06/17 07:00 Random Glucose 87 mg/dL (74-106) 03/06/17 07:00 Calcium 9.1 mg/dL (8.5-10.1) 03/06/17 07:00 Total Bilirubin 0.6 mg/dL (0.2-1.0) D 03/06/17 07:00 AST 43 U/L (15-37) H D 03/06/17 07:00 ALT 36 U/L (12-78) D 03/06/17 07:00 Alkaline Phosphatase 74 U/L (45-117) 03/06/17 07:00 Total Protein 7.2 g/dl (6.4-8.2) 03/06/17 07:00 Albumin 4.0 g/dl (3.4-5.0) D 03/06/17 07:00 Urine Color Ltyellow 03/07/17 21:00 Urine Appearance Clear 03/07/17 21:00 Urine pH 6.0 (5.0-8.0) 03/07/17 21:00 Ur Specific [place] 1.020 (1.005-1.025) 03/07/17 21:00 Urine Protein Negative (NEGATIVE) 03/07/17 21:00 Urine Glucose (UA) Negative (NEGATIVE) 03/07/17 21:00 Urine Ketones Negative (NEGATIVE) 03/07/17 21:00 Urine Blood Negative (NEGATIVE) 03/07/17 21:00 Urine Nitrite Negative (NEGATIVE) 03/07/17 21:00 Urine Bilirubin Negative (NEGATIVE) 03/07/17 21:00 Urine Urobilinogen Negative E.U./dl (0.2-1.0) 03/07/17 21:00 Ur Leukocyte Esterase Negative (NEGATIVE) 03/07/17 21:00 RPR Titer Nonreactive (NONREACTIVE) 03/06/17 07:00 Hepatitis C Antibody <0.1 s/co ratio (0.0-0.9) 03/06/17 07:00 HIV 1&2 Antibody Screen Negative 03/06/17 07:00 HIV P24 Antigen Negative 03/06/17 07:00 labs noted - Treatment Patient has Accepted a Rehab Referral to: [facility] residential - Medication Discharge Medications: Ambulatory Orders NK [No Known Home Medication] 01/12/17 - Diagnosis (1) Cocaine dependence, uncomplicated Status: Acute (2) Nicotine dependence Status: Acute Qualifiers: Nicotine product type: cigarettes Substance use status: uncomplicated Qualified Code(s): F17.210 - Nicotine dependence, cigarettes, uncomplicated (3) Opioid dependence with withdrawal Status: Acute (4) PCP dependence Status: Acute (5) Substance induced mood disorder Status: Acute - AMA Did Patient Leave Against Medical Advice: Yes
[2017-03-10] MEDS ORDERED: METHADONE HCL 10 MG TABLET (FOR DETOX USE ONLY) PO ONE (10:00)
[2017-03-11] MEDS ORDERED: METHADONE HCL 5 MG TABLET (FOR DETOX USE ONLY) PO ONE (06:00)
== END 2017-03-09 14:20 | disposition left against medical advice (07) | DRG 770 ==
LOC: YASAS 00:30 → Y3N 00:34
PROVIDERS: ADMIT Internal Medicine; ATTEND Internal Medicine
PROC: HZ2ZZZZ Detoxification Services for Substance Abuse Treatment (ICD-10-PCS; principal; 2017-03-09)
DX: F11.23 Opioid dependence with withdrawal (principal); F14.20 Cocaine dependence, uncomplicated; F15.20 Other stimulant dependence, uncomplicated; F17.210 Nicotine dependence, cigarettes, uncomplicated; F19.24 Other psychoactive substance dependence with psychoactive substance-induced mood disorder; F32.9 Major depressive disorder, single episode, unspecified
CPT/HCPCS: 36415; 80053; 81003; 85027; 86593; 86803; 87389; 93005; 93010

== ENCOUNTER 2017-08-04 11:44 | Inpatient (IN) | payer OTHER ==
[2017-08-04 12:24] VITALS: BMI 29.5
--- NOTE | 2017-08-04 14:22 | HP ---
COWS - Scale Resting Pulse: 0= [place] 80 or Below Sweatin= Chills/Flushing Restless Observation: 1= Difficult to Sit Still Pupil Size: 1= Pupils >than Normal Bone or Joint Aches: 1= Mild Discomfort Runny Nose/ Eye Tearin= Nasal Congestion GI Upset > 30mins: 2= Nausea/Diarrhea Tremor Observation: 2= Slight Tremor Visible Yawning Observation: 1= 1-2x During Session Anxiety or Irritability: 2=Irritable/Anxious Goose Flesh Skin: 3=Piloerection COWS Score: 15 Admission ROS [facility] Chief Complaint: heroin withdrawal sx Allergies/Adverse Reactions: Allergies Allergy/AdvReac Type Severity Reaction Status Date / Time No Known Allergies Allergy Verified 08/04/17 13:58 History of Present Illness: 27 yo m with h/o opioid dependence, last used yesterday sniffs daily 11 bags, cocaine and PCP abuse, sniffs the cocaine smokes the PCP, nicotine dependence 20 /day now c/o withdrawal sx. Came today because he is ready to stop. PMHX neg, no psychiatric illness. Has been admitted to [facility] in past, reports using street methadone and recent detox admission, wants to be there for his daughter Exam Limitations: No Limitations - Ebola screening Have you traveled outside of the country in the last 21 days: No Have you had contact with anyone from an Ebola affected area: Yes Have you been sick,other than usual withdrawal symptoms: No Do you have a fever: No - Review of Systems Constitutional: Chills, Diaphoresis, Loss of Appetite, Malaise, Night Sweats, Weakness, Unintentional Wgt. Loss EENT: reports: No Symptoms Reported Respiratory: reports: No Symptoms reported Cardiac: reports: No Symptoms Reported GI: reports: Diarrhea, Nausea, Poor Appetite, Poor Fluid Intake : reports: No Symptoms Reported Musculoskeletal: reports: Back Pain, Muscle Pain, Muscle Weakness Integumentary: reports: Flushing, Sweating Neuro: reports: Headache, Tremors, Weakness Endocrine: reports: No Symptoms Reported Hematology: reports: No Symptoms Reported Psychiatric: reports: Judgement Intact, Mood/Affect Appropiate, Orientated x3, Anxious, Depressed Other Systems: Reviewed and Negative Patient History - Patient Medical History Hx Anemia: No Hx Asthma: No Hx Chronic Obstructive Pulmonary Disease (COPD): No Hx Cancer: No Hx Cardiac Disorders: No Hx Congestive Heart Failure: No Hx Hypertension: No Hx Hypercholesterolemia: No Hx Pacemaker: No HX Cerebrovascular Accident: No Hx Seizures: No Hx Dementia: No Hx Diabetes: No Hx Gastrointestinal Disorders: No Hx Liver Disease: No Hx Genitourinary Disorders: No Hx Sexually Transmitted Disorders: No Hx Renal Disease (ESRD): No Hx Thyroid Disease: No Hx Human Immunodeficiency Virus (HIV): No Hx Hepatitis C: No Hx Depression: No Hx Suicide Attempt: No Hx Bipolar Disorder: No Hx Schizophrenia: No - Patient Surgical History Past Surgical History: No Hx Neurologic Surgery: No Hx Cataract Extraction: No Hx Cardiac Surgery: No Hx Lung Surgery: No Hx Breast Surgery: No Hx Breast Biopsy: No Hx Abdominal Surgery: No Hx Appendectomy: No Hx Cholecystectomy: No Hx Genitourinary Surgery: No Hx Section: No Hx Orthopedic Surgery: No Anesthesia Reaction: No - PPD History Previous Implant?: Yes Documented Results: Negative w/proof Implanted On Prior R Admission?: Yes Date: 01/14/17 Results: 0 mm - Reproductive History Patient is a Female of Child Bearing Age (11 -55 yrs old): No Patient : No - Smoking Cessation Smoking history: Former smoker Have you smoked in the past 12 months: Yes Aproximately how many cigarettes per day: 20 If you are a former smoker, when did you quit?: 08/2016 Cigars Per Day: 0 Hx Chewing Tobacco Use: No Initiated information on smoking cessation: Yes 'Breaking Loose' booklet given: 08/04/17 - Substance & Tx. History Hx Alcohol Use: No Hx Substance Use: Yes Substance Use Type: Cocaine, Heroin Hx Substance Use Treatment: Yes (multiple admissions for inpatient detoxification) - Substances Abused Heroin Route: Inhalation Frequency: Daily Amount used: 10 bags Age of first use: 18 Date of Last Use: 08/03/17 Family Disease History - Family Disease History Family Disease History: [place]: Mother (BRAIN CA ) Admission Physical Exam BHS - Vital Signs Vital Signs: Vital Signs - 24 hr 08/04/17 12:22 Temperature 96.6 F L Pulse Rate 64 Respiratory 18 Rate Blood Pressure 127/81 - Physical General Appearance: Yes: Nourished, Appropriately Dressed, Disheveled, Mild Distress, Tremorous, Irritable, Sweating, Anxious HEENTM: Yes: EOMI, Hearing grossly Normal, Normal ENT Inspection, Normocephalic , Normal Voice, RUSSEL, Pharynx Normal, Nasal Congestion, Rhinorrhea Respiratory: Yes: Within Normal Limits, Chest Non-Tender, Lungs Clear, Normal Breath Sounds, No Respiratory Distress, No Accessory Muscle Use Neck: Yes: Within Normal Limits, No masses,lesions,Nodules, Supple, Trachea in good position Breast: Yes: Breast Exam Deferred Cardiology: Yes: Regular Rhythm, Regular Rate, S1, S2 Abdominal: Yes: Normal Bowel Sounds, Non Tender, Flat, Soft Genitourinary: Yes: Within Normal Limits Back: Yes: Normal Inspection, Muscle Spasm Musculoskeletal: Yes: Back pain Extremities: Yes: Normal Capillary Refill, Normal Range of Motion, Non-Tender, Tremors Neurological: Yes: marketing operations assistant II-XII NML intact, Fully Oriented, Alert, Motor Strength 5/5, Normal Response, Depressed Affect Integumentary: Yes: Normal Color, Warm, Diaphoresis, Moist, Track [place] Lymphatic: Yes: Within Normal Limits - Addiitonal Findings: withdrawal sx - Diagnostic (1) Cocaine dependence, uncomplicated Current Visit: Yes Status: Acute (2) Nicotine dependence Current Visit: Yes Status: Acute Qualifiers: Nicotine product type: cigarettes Substance use status: uncomplicated Qualified Code(s): F17.210 - Nicotine dependence, cigarettes, uncomplicated; F17.210 - Nicotine dependence, cigarettes, uncomplicated (3) Opioid dependence with withdrawal Current Visit: Yes Status: Acute (4) Substance induced mood disorder Current Visit: Yes Status: Acute (5) Insomnia Current Visit: Yes Status: Acute Cleared for Admission [facility] - Detox or Rehab [facility] Level of Care: Medically Managed Detox Regimen/Protocol: Methadone [facility] Breath Alcohol Content Breath Alcohol Content: 0 Urine Drug Screen - Results Drug Screen Negative: No Urine Drug Screen Results: BRENDA-Cocaine, OPI-Opiates, BZO-Benzodiazepines, MTD- Methadone
[2017-08-04] MEDS ORDERED: MAG HYDROX/AL HYDROX/SIMETH 30 ML UNIT-DOSE CUP PO PRN (14:24)
[2017-08-04] MEDS ORDERED: LOPERAMIDE HCL 2 MG CAPSULE PO PRN (14:24)
[2017-08-04] MEDS ORDERED: MAGNESIUM HYDROX 2400MG/30ML ORAL SUSPENSION 30 ML CUP PO PRN (14:24)
[2017-08-04] MEDS ORDERED: METHADONE HCL 10 MG TABLET (FOR DETOX USE ONLY) PO ONE ×2 (14:24→23:00)
[2017-08-04] MEDS ORDERED: MAGNESIUM CITRATE 300 ML BOTTLE PO PRN (14:24)
[2017-08-04] MEDS ORDERED: P-EPHED 60MG/TRIPROLIDI 2.5MG TABLET PO PRN (14:24)
[2017-08-04] MEDS ORDERED: IBUPROFEN 400 MG TABLET (FP) PO PRN (14:24)
[2017-08-04] MEDS ORDERED: MENTHOL/PHENOL 1 EACH UD MM PRN (14:24)
[2017-08-04] MEDS ORDERED: ACETAMINOPHEN 325 MG TABLET (FP) PO PRN (14:24)
[2017-08-04] MEDS: NICOTINE 21 MG/24 HOURS TOPICAL PATCH TD SCH (15:48)
[2017-08-04] MEDS: NICOTINE POLACRILEX 4 MG GUM BC PRN (15:49)
--- NOTE | 2017-08-04 16:29 | PN ---
BHS Progress Note Note: ekg sinus bradycardia with sinus arrhythmia,48/min no chest pain,no sob,no dizziness repeat ekg in am close monitoring
[2017-08-04 18:43] LABS: URINE APPEARANCE CLEAR; URINE BILIRUBIN NEGATIVE (NEGATIVE); URINE BLOOD NEGATIVE (NEGATIVE); URINE COLOR YELLOW; URINE GLUCOSE (UA) NEGATIVE (NEGATIVE); URINE KETONE NEGATIVE (NEGATIVE); URINE NITRITE NEGATIVE (NEGATIVE); URINE PROTEIN NEGATIVE (NEGATIVE); URINE UROBILINOGEN NEGATIVE mg/dL (0.2-1.0)
[2017-08-04 21:03] LABS: URINE LEUK ESTERASE Negative (NEGATIVE)
[2017-08-04] MEDS: THIAMINE HCL 100 MG TABLET (FP) PO SCH (22:14)
[2017-08-04] MEDS: diazePAM 5 MG TABLET PO PRN (22:15)
[2017-08-05] MEDS ORDERED: METHADONE HCL 10 MG TABLET (FOR DETOX USE ONLY) PO ONE (10:00)
[2017-08-05] MEDS: PRENATAL VITAMINS W/ FOLIC ACID TABLET (FP) PO SCH (10:31)
[2017-08-05] MEDS: NICOTINE POLACRILEX 4 MG GUM BC PRN (10:31)
[2017-08-05] MEDS: NICOTINE 21 MG/24 HOURS TOPICAL PATCH TD SCH (10:31)
--- NOTE | 2017-08-05 11:41 | EKG ---
Test Reason : Blood Pressure : / mmHG Vent. Rate : 048 BPM Atrial Rate : 048 BPM P-R Int : 168 ms QRS Dur : 096 ms QT Int : 432 ms P-R-T Axes : 054 059 043 degrees QTc Int : 385 ms SINUS BRADYCARDIA WITH SINUS ARRHYTHMIA SEPTAL INFARCT (CITED ON OR BEFORE 12-JAN-2017) ABNORMAL ECG WHEN COMPARED WITH ECG OF 06-MAR-2017 00:07, NO SIGNIFICANT CHANGE WAS FOUND Confirmed by HOME HERNANDEZ MD ([id number]) on 08/05/2017 11:40:40 AM Referred By: Confirmed By:HOME HERNANDEZ MD
--- NOTE | 2017-08-05 14:38 | PN ---
BHS COWS - Scale Resting Pulse: 0= [place] 80 or Below Sweatin= Chills/Flushing Restless Observation: 3= Extraneous Movement Pupil Size: 1= Pupils >than Normal Bone or Joint Aches: 2= Severe Diffuse Aches Runny Nose/ Eye Tearin= Runny Nose/Eyes GI Upset > 30mins: 2= Nausea/Diarrhea Tremor Observation of Outstretched Hands: 2= Slight Tremor Visible Yawning Observation: 1= 1-2x During Session Anxiety or Irritability: 2=Irritable/Anxious Goose Flesh Skin: 0=Smooth Skin COWS Score: 16 BHS Progress Note (SOAP) Subjective: ALERT,IRRITABLE,ANXIOUS,INTERRUPTED SLEEP,TREMOR,PAIN IN THE BODY AND BACK Objective: 08/05/17 14:35 Vital Signs Temperature 97.7 F 08/05/17 11:07 Pulse Rate 52 L 08/05/17 11:07 Respiratory Rate 18 08/05/17 11:07 Blood Pressure 119/67 08/05/17 11:07 O2 Sat by Pulse Oximetry (%) EKG SINUS BRADYCARDIA WITH SINUS ARRHYTHMIA ST IN V2 NO CHEST PAIN,NO SOB,NO DIZZINESS Laboratory Last Values Urine Color Yellow 08/04/17 09:49 Urine Appearance Clear 08/04/17 09:49 Urine pH 5.0 (5.0-8.0) 08/04/17 09:49 Ur Specific [place] >= 1.030 (1.005-1.025) H 08/04/17 09:49 Urine Protein Negative (NEGATIVE) 08/04/17 09:49 Urine Glucose (UA) Negative (NEGATIVE) 08/04/17 09:49 Urine Ketones Negative (NEGATIVE) 08/04/17 09:49 Urine Blood Negative (NEGATIVE) 08/04/17 09:49 Urine Nitrite Negative (NEGATIVE) 08/04/17 09:49 Urine Bilirubin Negative (NEGATIVE) 08/04/17 09:49 Urine Urobilinogen Negative mg/dL (0.2-1.0) 08/04/17 09:49 Ur Leukocyte Esterase Negative (NEGATIVE) 08/04/17 09:49 LABS PENDING Assessment: 08/05/17 14:37 WITHDRAWAL SYMPTOM Plan: CONTINUE DETOX,REPEAT EKG TODAY
--- NOTE | 2017-08-05 14:45 | PN ---
BHS Progress Note Note: REPEAT EKG MARKED SINUS BRADYCARDIA,ST IN V2 NO CHANGE COMPARING WITH 08/04/17 CONTINUE DETOX,CLOSE MONITORING
[2017-08-05] MEDS: THIAMINE HCL 100 MG TABLET (FP) PO SCH (22:22)
[2017-08-05] MEDS: diazePAM 5 MG TABLET PO PRN (22:22)
[2017-08-06 09:46] LABS: MCH 30.2 pg (25.7-33.7); MCHC 32.6 g/dl (32.0-35.9); MEAN CELL VOLUME 92.6 fl (80-96); MEAN PLT VOLUME 8.6 fl (7.5-11.1); PLATELET COUNT 266 K/MM3 (134-434); RDW 14.4 % (11.9-15.9)
[2017-08-06] MEDS ORDERED: METHADONE HCL 5 MG TABLET (FOR DETOX USE ONLY) PO ONE (10:00)
[2017-08-06 10:05] LABS: ALBUMIN 3.2 g/dl (3.4-5.0); ALK PHOS 54 U/L (45-117); ANION GAP 7 (8-16); BILIRUBIN,TOTAL 0.4 mg/dL (0.2-1.0); CALCIUM 8.2 mg/dL (8.5-10.1); CO2 27 mmol/L (21-32); GLUCOSE,RANDOM 81 mg/dL (74-106); SGOT/AST 17 U/L (15-37); SGPT/ALT 27 U/L (12-78); TOT PROT 5.9 g/dl (6.4-8.2)
[2017-08-06] MEDS: PRENATAL VITAMINS W/ FOLIC ACID TABLET (FP) PO SCH (10:19)
[2017-08-06] MEDS: NICOTINE 21 MG/24 HOURS TOPICAL PATCH TD SCH (10:19)
[2017-08-06] MEDS: diazePAM 5 MG TABLET PO PRN ×3 (10:20→22:45)
[2017-08-06] MEDS: NICOTINE POLACRILEX 4 MG GUM BC PRN (10:22)
--- NOTE | 2017-08-06 10:27 | PN ---
BHS COWS - Scale Resting Pulse: 0= [place] 80 or Below Sweatin=Flushed/Facial Moisture Restless Observation: 1= Difficult to Sit Still Pupil Size: 0= Normal to Room Light Bone or Joint Aches: 2= Severe Diffuse Aches Runny Nose/ Eye Tearin= Runny Nose/Eyes GI Upset > 30mins: 0= None Tremor Observation of Outstretched Hands: 1= Tremor [place], Not Seen Yawning Observation: 2= >3x During Session Anxiety or Irritability: 1=Feels Anxious/Irritable Goose Flesh Skin: 3=Piloerection COWS Score: 14 BHS Progress Note (SOAP) Subjective: agitation sweats irritable cough interrupted sleep Objective: 08/06/17 10:28 Vital Signs Temperature 97.3 F L 08/06/17 06:05 Pulse Rate 44 L 08/06/17 06:05 Respiratory Rate 18 08/06/17 06:05 Blood Pressure 116/64 08/06/17 06:05 O2 Sat by Pulse Oximetry (%) Laboratory Tests 08/04/17 08/06/17 08/06/17 09:49 07:00 07:00 WBC 7.0 RBC 3.87 L Hgb 11.7 Hct 35.8 MCV 92.6 MCH 30.2 MCHC 32.6 RDW 14.4 Plt Count 266 MPV 8.6 Sodium 139 Potassium 4.2 Chloride 105 Carbon Dioxide 27 Anion Gap 7 L BUN 15 D Creatinine 1.0 Creat Clearance w eGFR > 60 Random Glucose 81 Calcium 8.2 L Total Bilirubin 0.4 D AST 17 D ALT 27 D Alkaline Phosphatase 54 D Total Protein 5.9 L Albumin 3.2 L Urine Color Yellow Urine Appearance Clear Urine pH 5.0 Ur Specific [place] >= 1.030 H Urine Protein Negative Urine Glucose (UA) Negative Urine Ketones Negative Urine Blood Negative Urine Nitrite Negative Urine Bilirubin Negative Urine Urobilinogen Negative Ur Leukocyte Esterase Negative aaox3 ambulating no acute distress Assessment: 08/06/17 10:28 withdrawal sx Plan: continue detox increase fluids robutussin prn
[2017-08-06] MEDS: guaiFENesin/D-METHORPHAN HB 10 ML UNIT-DOSE CUPS PO PRN ×2 (10:31→23:51)
[2017-08-06] MEDS: ZOLPIDEM TARTRATE 10 MG TABLET (PARK CARE ONLY) PO PRN (22:38)
[2017-08-06] MEDS: THIAMINE HCL 100 MG TABLET (FP) PO SCH (22:38)
--- NOTE | 2017-08-07 07:23 | EKG ---
Test Reason : Blood Pressure : / mmHG Vent. Rate : 043 BPM Atrial Rate : 043 BPM P-R Int : 160 ms QRS Dur : 114 ms QT Int : 428 ms P-R-T Axes : 019 059 040 degrees QTc Int : 361 ms MARKED SINUS BRADYCARDIA INCOMPLETE LEFT BUNDLE BRANCH BLOCK ST ELEVATION, CONSIDER EARLY REPOLARIZATION ABNORMAL ECG WHEN COMPARED WITH ECG OF 04-AUG-2017 14:38, T WAVE VARIATION Confirmed by WALTER COBB MD ([id number]) on 08/07/2017 7:23:19 AM Referred By: Confirmed By:WALTER COBB MD
[2017-08-07] MEDS ORDERED: METHADONE HCL 5 MG TABLET (FOR DETOX USE ONLY) PO ONE (10:00)
[2017-08-07] MEDS: PRENATAL VITAMINS W/ FOLIC ACID TABLET (FP) PO SCH (10:24)
[2017-08-07] MEDS: diazePAM 5 MG TABLET PO PRN (10:25)
--- NOTE | 2017-08-07 10:29 | PN ---
BHS Progress Note (SOAP) Subjective: agitation anxiety sweats irritable interrupted sleep Objective: 08/07/17 10:28 Vital Signs Temperature 97.6 F 08/07/17 06:50 Pulse Rate 61 08/07/17 06:50 Respiratory Rate 18 08/07/17 06:50 Blood Pressure 101/59 08/07/17 06:50 O2 Sat by Pulse Oximetry (%) Laboratory Tests 08/04/17 08/06/17 08/06/17 09:49 07:00 07:00 WBC 7.0 RBC 3.87 L Hgb 11.7 Hct 35.8 MCV 92.6 MCH 30.2 MCHC 32.6 RDW 14.4 Plt Count 266 MPV 8.6 Sodium 139 Potassium 4.2 Chloride 105 Carbon Dioxide 27 Anion Gap 7 L BUN 15 D Creatinine 1.0 Creat Clearance w eGFR > 60 Random Glucose 81 Calcium 8.2 L Total Bilirubin 0.4 D AST 17 D ALT 27 D Alkaline Phosphatase 54 D Total Protein 5.9 L Albumin 3.2 L Urine Color Yellow Urine Appearance Clear Urine pH 5.0 Ur Specific [place] >= 1.030 H Urine Protein Negative Urine Glucose (UA) Negative Urine Ketones Negative Urine Blood Negative Urine Nitrite Negative Urine Bilirubin Negative Urine Urobilinogen Negative Ur Leukocyte Esterase Negative RPR Titer 08/06/17 07:00 WBC RBC Hgb Hct MCV MCH MCHC RDW Plt Count MPV Sodium Potassium Chloride Carbon Dioxide Anion Gap BUN Creatinine Creat Clearance w eGFR Random Glucose Calcium Total Bilirubin AST ALT Alkaline Phosphatase Total Protein Albumin Urine Color Urine Appearance Urine pH Ur Specific [place] Urine Protein Urine Glucose (UA) Urine Ketones Urine Blood Urine Nitrite Urine Bilirubin Urine Urobilinogen Ur Leukocyte Esterase RPR Titer Nonreactive aaox3 ambulating no acute distress Assessment: 08/07/17 10:28 withdrawal sx Plan: continue detox increase fluids
[2017-08-07] MEDS: NICOTINE 21 MG/24 HOURS TOPICAL PATCH TD SCH (11:53)
[2017-08-07] MEDS: hydrOXYzine PAMOATE 50 MG CAPSULE (FP) PO PRN (17:54)
[2017-08-08] MEDS: THIAMINE HCL 100 MG TABLET (FP) PO SCH ×2 (00:01→22:47)
[2017-08-08] MEDS: hydrOXYzine PAMOATE 50 MG CAPSULE (FP) PO PRN ×3 (04:18→23:56)
[2017-08-08] MEDS: guaiFENesin/D-METHORPHAN HB 10 ML UNIT-DOSE CUPS PO PRN (09:11)
[2017-08-08] MEDS ORDERED: METHADONE HCL 10 MG TABLET (FOR DETOX USE ONLY) PO ONE (10:00)
[2017-08-08] MEDS: NICOTINE 21 MG/24 HOURS TOPICAL PATCH TD SCH (10:59)
[2017-08-08] MEDS: PRENATAL VITAMINS W/ FOLIC ACID TABLET (FP) PO SCH (10:59)
--- NOTE | 2017-08-08 12:35 | PN ---
BHS Progress Note (SOAP) Subjective: Anxious, sweating, interrupted sleep Objective: 08/08/17 12:34 Last Vital Signs Temp Pulse Resp BP Pulse Ox 98.4 F 54 L 18 135/86 08/08/17 11:11 08/08/17 11:11 08/08/17 11:11 08/08/17 11:11 Laboratory Tests 08/04/17 08/06/17 08/06/17 09:49 07:00 07:00 WBC 7.0 RBC 3.87 L Hgb 11.7 Hct 35.8 MCV 92.6 MCH 30.2 MCHC 32.6 RDW 14.4 Plt Count 266 MPV 8.6 Sodium 139 Potassium 4.2 Chloride 105 Carbon Dioxide 27 Anion Gap 7 L BUN 15 D Creatinine 1.0 Creat Clearance w eGFR > 60 Random Glucose 81 Calcium 8.2 L Total Bilirubin 0.4 D AST 17 D ALT 27 D Alkaline Phosphatase 54 D Total Protein 5.9 L Albumin 3.2 L Urine Color Yellow Urine Appearance Clear Urine pH 5.0 Ur Specific [place] >= 1.030 H Urine Protein Negative Urine Glucose (UA) Negative Urine Ketones Negative Urine Blood Negative Urine Nitrite Negative Urine Bilirubin Negative Urine Urobilinogen Negative Ur Leukocyte Esterase Negative RPR Titer 08/06/17 07:00 WBC RBC Hgb Hct MCV MCH MCHC RDW Plt Count MPV Sodium Potassium Chloride Carbon Dioxide Anion Gap BUN Creatinine Creat Clearance w eGFR Random Glucose Calcium Total Bilirubin AST ALT Alkaline Phosphatase Total Protein Albumin Urine Color Urine Appearance Urine pH Ur Specific [place] Urine Protein Urine Glucose (UA) Urine Ketones Urine Blood Urine Nitrite Urine Bilirubin Urine Urobilinogen Ur Leukocyte Esterase RPR Titer Nonreactive Labs noted Assessment: 08/08/17 12:35 Withdrawal symptoms Plan: Continue detox
[2017-08-08] MEDS: ZOLPIDEM TARTRATE 10 MG TABLET (PARK CARE ONLY) PO PRN (22:47)
[2017-08-09] MEDS ORDERED: METHADONE HCL 5 MG TABLET (FOR DETOX USE ONLY) PO ONE (06:00)
[2017-08-09] MEDS: hydrOXYzine PAMOATE 50 MG CAPSULE (FP) PO PRN (07:24)
--- NOTE | 2017-08-09 08:57 | DS ---
[facility] Detox Discharge Summary Admission Date: 08/04/17 Discharge Date: 08/09/17 - History Present History: Cocaine Dependence, Opioid Dependence - Physical Exam Results Vital Signs: Vital Signs Temperature 98.1 F 08/09/17 06:45 Pulse Rate 50 L 08/09/17 06:45 Respiratory Rate 16 08/09/17 06:45 Blood Pressure 132/76 08/09/17 06:45 O2 Sat by Pulse Oximetry (%) - Treatment Hospital Course: Detox Protocol Followed, Detoxed Safely, Responded well, Discharged Condition Good, Rehab Referral Accepted - Medication Discharge Medications: Ambulatory Orders NK [No Known Home Medication] 01/12/17 - Diagnosis (1) Cocaine dependence, uncomplicated Current Visit: Yes Status: Chronic (2) Insomnia Current Visit: Yes Status: Chronic Qualifiers: Insomnia type: primary Qualified Code(s): F51.01 - Primary insomnia ; F51.01 - Primary insomnia (3) Nicotine dependence Current Visit: Yes Status: Chronic Qualifiers: Nicotine product type: cigarettes Substance use status: uncomplicated Qualified Code(s): F17.210 - Nicotine dependence, cigarettes, uncomplicated; F17.210 - Nicotine dependence, cigarettes, uncomplicated (4) Opioid dependence with withdrawal Current Visit: Yes Status: Chronic - AMA Did Patient Leave Against Medical Advice: No
[2017-08-09 10:04] VITALS: BP 139/81; PULSE 65; TEMP 98.3
== END 2017-08-09 09:20 | disposition home or self-care (01) | DRG 773 ==
LOC: YASAS 11:44 → Y6N 14:34
PROVIDERS: ADMIT Internal Medicine; ATTEND Surgery
PROC: HZ2ZZZZ Detoxification Services for Substance Abuse Treatment (ICD-10-PCS; principal; 2017-08-04)
DX: F11.23 Opioid dependence with withdrawal (principal); F14.20 Cocaine dependence, uncomplicated; F17.210 Nicotine dependence, cigarettes, uncomplicated; F19.24 Other psychoactive substance dependence with psychoactive substance-induced mood disorder; F51.01 Primary insomnia
CPT/HCPCS: 36415; 80053; 81003; 85027; 86593; 93005; 93010

== ENCOUNTER 2019-06-13 14:30 | Inpatient (IN) | payer SELFPAY ==
[2019-06-13 16:39] VITALS: BMI 32.1
--- NOTE | 2019-06-13 18:47 | HP ---
CIWA Score Nausea/Vomitin Muscle Tremors: 4-Moderate,w/Arms Extend Anxiety: 4-Mod. Anxious/Guarded Agitation: 4-Moderately Restless Paroxysmal Sweats: 3 Orientation: 2-Disoriented Date<2 days Tacttile Disturbances: 0-None Auditory Disturbances: 0-None Visual Disturbances: 1-Very Mild Sensitivity Headache: 3-Moderate CIWA-Ar Total Score: 26 - Admission Criteria OASAS Guidelines: Admission for Medically Managed Detox: Requires at least one of the followin. CIWA greater than 12 2. Seizures within the past 24 hours 3. Delirium tremens within the past 24 hours 4. Hallucinations within the past 24 hours 5. Acute intervention needed for co occurring medical disorder 6. Acute intervention needed for co occurring psychiatric disorder 7. Severe withdrawal that cannot be handled at a lower level of care (continued vomiting, continued diarrhea, abnormal vital signs) requiring intravenous medication and/or fluids 8. Patient presents the following: CIWA greater than 12 Admission Criteria Met: Admission criteria met Admission ROS S - [facility] Chief Complaint: C/O WITHDRAWAL SX'S. SEEKING DETOX Allergies/Adverse Reactions: Allergies Allergy/AdvReac Type Severity Reaction Status Date / Time No Known Allergies Allergy Verified 08/04/17 13:58 History of Present Illness: 29 Y.O. MALE WITH ALCOHOLISM HERE FOR DETOX. CLIENT IS REFERRED BY [employer] FOR HIS USE TO INCLUDE COCAINE. HE PRESENTS WITH WITHDRAWAL SX'S. + CIWA, + EYE [employer]. REPORTS DAILY USE OF ALCOHOL. LAST USE YESTERDAY. ENIES SEIZURES, BLACKOUTS. REPORTS FEW MONTHS CLEAN RELAPSING 07/2018. LIVES ALONE, EMPLOYED, [employer] Exam Limitations: No Limitations - Ebola screening Have you traveled outside of the country in the last 21 days: No (N) Have you had contact with anyone from an Ebola affected area: No Do you have a fever: No - Review of Systems Constitutional: Chills, Loss of Appetite, Malaise, Night Sweats, Changes in sleep EENT: reports: No Symptoms Reported Respiratory: reports: No Symptoms reported Cardiac: reports: No Symptoms Reported GI: reports: Nausea, Poor Appetite, Poor Fluid Intake, Vomiting, Abdominal cramping : reports: No Symptoms Reported Musculoskeletal: reports: No Symptoms Reported Integumentary: reports: No Symptoms Reported Neuro: reports: Headache, Tremors Endocrine: reports: No Symptoms Reported Hematology: reports: No Symptoms Reported Psychiatric: reports: Orientated x3, Agitated (IRRITABLE), Anxious Other Systems: Reviewed and Negative Patient History - Patient Medical History Hx Anemia: No Hx Asthma: No Hx Chronic Obstructive Pulmonary Disease (COPD): No Hx Cancer: No Hx Cardiac Disorders: No Hx Congestive Heart Failure: No Hx Hypertension: No Hx Hypercholesterolemia: No Hx Pacemaker: No HX Cerebrovascular Accident: No Hx Seizures: No Hx Dementia: No Hx Diabetes: No Hx Gastrointestinal Disorders: No Hx Liver Disease: No Hx Genitourinary Disorders: No Hx Sexually Transmitted Disorders: No Hx Renal Disease (ESRD): No Hx Thyroid Disease: No Hx Human Immunodeficiency Virus (HIV): No Hx Hepatitis C: No Hx Depression: No Hx Suicide Attempt: No Hx Bipolar Disorder: No Hx Schizophrenia: No - Patient Surgical History Past Surgical History: No Hx Neurologic Surgery: No Hx Cataract Extraction: No Hx Cardiac Surgery: No Hx Lung Surgery: No Hx Breast Surgery: No Hx Breast Biopsy: No Hx Abdominal Surgery: No Hx Appendectomy: No Hx Cholecystectomy: No Hx Genitourinary Surgery: No Hx Section: No Hx Orthopedic Surgery: No Anesthesia Reaction: No - PPD History Previous Implant?: Yes Documented Results: Negative w/proof Implanted On Prior [facility] Admission?: Yes Date: 01/14/17 Results: 0 mm PPD to be Administered?: Yes - Smoking Cessation Smoking history: Current every day smoker Have you smoked in the past 12 months: Yes Aproximately how many cigarettes per day: 20 Cigars Per Day: 0 Hx Chewing Tobacco Use: No Initiated information on smoking cessation: Yes 'Breaking Loose' booklet given: 06/13/19 - Substance & Tx. History Hx Alcohol Use: Yes Hx Substance Use: Yes Substance Use Type: Alcohol, Cocaine Hx Substance Use Treatment: Yes ([facility]) - Substances abused Alcohol Substance route: Oral Frequency: Daily Amount used: 40 dollars a bottle of Henessy. Age of first use: 12 Date of last use: 06/13/19 Cocaine Substance route: Inhalation Frequency: Daily Amount used: 2 t0 3 hundred Age of first use: 19 Date of last use: 06/13/19 Family Disease History - Family Disease History Family Disease History: CA: Mother (BRAIN CA ) Admission Physical Exam [facility] - Vital Signs Vital Signs: Vital Signs - 24 hr 06/13/19 16:32 Temperature 99.2 F Pulse Rate 60 Respiratory 18 Rate Blood Pressure 131/77 - Physical General Appearance: Yes: Tremorous, Anxious HEENTM: Yes: EOMI, Normocephalic, Normal Voice, RUSSEL, Pharynx Normal Respiratory: Yes: Chest Non-Tender, Lungs Clear, Normal Breath Sounds, No Respiratory Distress, No Accessory Muscle Use Neck: Yes: No masses,lesions,Nodules, Supple, Trachea in good position Breast: Yes: Breast Exam Deferred Cardiology: Yes: Regular Rhythm, Regular Rate, S1, S2 Abdominal: Yes: Normal Bowel Sounds, Non Tender, Soft Genitourinary: Yes: Within Normal Limits Back: Yes: Normal Inspection Musculoskeletal: Yes: full range of Motion, Gait Steady Extremities: Yes: Normal Range of Motion, Non-Tender, Tremors Neurological: Yes: Fully Oriented, Alert, Motor Strength 5/5 Integumentary: Yes: Dry, Warm, Other (CUTANEOUS CHONG TO CHEST AND BACK) Lymphatic: Yes: Within Normal Limits - Diagnostic (1) Alcohol dependence with uncomplicated withdrawal Current Visit: Yes Status: Acute (2) Cutaneous candidiasis Current Visit: Yes Status: Chronic (3) Substance induced mood disorder Current Visit: Yes Status: Suspected (4) Cocaine dependence, uncomplicated Current Visit: Yes Status: Chronic (5) Nicotine dependence Current Visit: Yes Status: Chronic Qualifiers: Nicotine product type: cigarettes Substance use status: uncomplicated Qualified Code(s): F17.210 - Nicotine dependence, cigarettes, uncomplicated Cleared for Admission [facility] - Detox or Rehab [facility] Level of Care: Medically Managed Detox Regimen/Protocol: Librium Claeared for Rehab Admission: No Breathalyzer - Breathalyzer Breathalyzer: 0 Urine Drug Screen - Test Device Lot number: [id number] Expiration date: 03/21/21 - Control Is test valid?: Yes - Results Drug screen NEGATIVE: No Urine drug screen results: BRENDA-Cocaine Inpatient Rehab Admission - Rehab Decision to Admit Inpatient rehab admission?: No
[2019-06-13] MEDS ORDERED: guaiFENesin 200 MG/10 ML 10 ML UNIT-DOSE CUPS PO PRN (18:51)
[2019-06-13] MEDS ORDERED: BISMUTH SUBSALICYLATE 524 MG/30 ML UD PO PRN (18:51)
[2019-06-13] MEDS ORDERED: MENTHOL/PHENOL 1 EACH UD MM PRN (18:51)
[2019-06-13] MEDS ORDERED: MELATONIN 5 MG TABLETS PO PRN (18:51)
[2019-06-13] MEDS ORDERED: hydrOXYzine PAMOATE 25 MG CAPSULE (FP) PO PRN (18:51)
[2019-06-13] MEDS ORDERED: ONDANSETRON *ODT* 4 MG TABLET SL PRN (18:51)
[2019-06-13] MEDS ORDERED: MAG HYDROX/AL HYDROX/SIMETH 30 ML UNIT-DOSE CUP PO PRN (18:51)
[2019-06-13] MEDS ORDERED: MAGNESIUM HYDROX 2400MG/30ML ORAL SUSPENSION 30 ML CUP PO PRN (18:51)
[2019-06-13] MEDS ORDERED: DICYCLOMINE HCL 10 MG CAPSULE PO PRN (18:51)
[2019-06-13] MEDS ORDERED: MAGNESIUM CITRATE 300 ML BOTTLE PO PRN (18:51)
[2019-06-13] MEDS ORDERED: P-EPHED 60MG/TRIPROLIDI 2.5MG TABLET PO PRN (18:51)
[2019-06-13] MEDS ORDERED: ACETAMINOPHEN 325 MG TABLET (FP) PO PRN ×2 (18:51)
[2019-06-13] MEDS ORDERED: chlordiazePOXIDE HCL 25 MG CAPSULE PO PRN (18:51)
[2019-06-13] MEDS: IBUPROFEN 400 MG TABLET (FP) PO PRN (20:03)
[2019-06-13] MEDS: NICOTINE POLACRILEX 2 MG GUM BUC PRN (21:05)
[2019-06-13] MEDS: THIAMINE HCL 100 MG TABLET (FP) PO SCH (22:26)
[2019-06-13] MEDS: chlordiazePOXIDE HCL 25 MG CAPSULE PO SCH (22:26)
[2019-06-13] MEDS: METHOCARBAMOL 500 MG TABLET PO PRN (22:38)
[2019-06-14] MEDS: chlordiazePOXIDE HCL 25 MG CAPSULE PO SCH ×4 (06:49→23:15)
[2019-06-14 09:49] VITALS: BP 125/61; PULSE 57; TEMP 97.7
[2019-06-14] MEDS ORDERED: PRENATAL VITAMINS W/ FOLIC ACID TABLET (FP) PO SCH (10:00)
[2019-06-14] MEDS ORDERED: NICOTINE 21 MG/24 HOURS TOPICAL PATCH TD SCH (10:00)
[2019-06-14] MEDS: NICOTINE POLACRILEX 2 MG GUM BUC PRN (10:29)
[2019-06-14] MEDS: IBUPROFEN 400 MG TABLET (FP) PO PRN (10:31)
--- NOTE | 2019-06-14 10:32 | PN ---
[facility] CIWA - CIWA Score Nausea/Vomitin-No Nausea/No Vomiting Muscle Tremors: 2 Anxiety: 3 Agitation: 2 Paroxysmal Sweats: 3 Orientation: 0-Oriented Tacttile Disturbances: 1-Very Mild Itch/Numbness Auditory Disturbances: 0-None Visual Disturbances: 0-None Headache: 2-Mild CIWA-Ar Total Score: 13 [facility] Progress Note (SOAP) Subjective: c/o anxiety, sweats, headache, and shakes. Objective: 06/14/19 10:31 Vital Signs 06/14/19 06/14/19 06:00 09:47 Temperature 98.1 F 97.7 F Pulse Rate 66 57 L Respiratory 18 18 Rate Blood Pressure 122/63 125/61 Labs pending. Assessment: 06/14/19 10:31 AOX3, in no acute respiratory distress. Full ROM, ambulating in the unit. Withdrawal symptoms. Plan: continue detox.
[2019-06-14 10:54] LABS: HEMATOCRIT 23.2 % (35.4-49); MCHC 28.7 g/dl (32.0-35.9); MEAN CELL VOLUME 62.8 fl (80-96); MEAN PLT VOLUME 8.8 fl (7.5-11.1); PLATELET COUNT 352 K/MM3 (134-434); RBC 3.69 M/mm3 (4.00-5.60); RDW 19.1 % (11.9-15.9); WHITE BLOOD COUNT 5.9 K/mm3 (4.0-10.0)
[2019-06-14 11:05] LABS: ALBUMIN 3.9 g/dl (3.4-5.0); BILIRUBIN,TOTAL 0.3 mg/dL (0.2-1); BLOOD UREA NITROGEN 17.9 mg/dL (7-18); CREATININE 1.1 mg/dL (0.55-1.3); POTASSIUM 4.3 mmol/L (3.5-5.1); TOT PROT 7.2 g/dl (6.4-8.2)
[2019-06-14 11:55] LABS: HEMOGLOBIN 6.6 GM/dL (11.7-16.9)
[2019-06-14] MEDS: METHOCARBAMOL 500 MG TABLET PO PRN (12:54)
[2019-06-14] MEDS: METHYL SALICYLATE/MENTHOL OINT 30 GM TUBE TP SCH ×2 (13:20→23:15)
--- NOTE | 2019-06-14 14:20 | PN ---
[facility] Progress Note Note: Pt's H&H is 6.6 and 23.2, pt was assessed at bedside, denies any sob, dizziness , recent trauma, blood in urine, or in vomitus, denies any abdomen pain at the moment. Vital Signs 06/14/19 09:47 Temperature 97.7 F Pulse Rate 57 L Respiratory 18 Rate Blood Pressure 125/61 Pt is alert and oriented x3 and in no acute respiratory distress. Full ROM, ambulating in the unit. Pt is sent to [facility] ED for evaluation. Verbal report given to Rosendo Winchester.
[2019-06-14] MEDS: THIAMINE HCL 100 MG TABLET (FP) PO SCH (23:15)
[2019-06-15] MEDS ORDERED: chlordiazePOXIDE HCL 25 MG CAPSULE PO SCH (05:00)
--- NOTE | 2019-06-15 10:36 | PN ---
S Progress Note Note: Vital Signs (72 hours) 06/13/19 06/13/19 06/14/19 16:32 21:24 00:30 Temperature 99.2 F 99.3 F Pulse Rate 60 51 L Respiratory 18 18 18 Rate Blood Pressure 131/77 137/72 06/14/19 06/14/19 06/15/19 06:00 09:47 03:30 Temperature 98.1 F 97.7 F Pulse Rate 66 57 L Respiratory 18 18 18 Rate Blood Pressure 122/63 125/61 yessenia was seen in [facility] for re entry to floor vss alert and orineted mild withdrawal ap etoh dep anemia eval in ed stable fu cbc
[2019-06-16] MEDS ORDERED: chlordiazePOXIDE HCL 10 MG CAPSULE PO PRN
[2019-06-16] MEDS ORDERED: chlordiazePOXIDE HCL 10 MG CAPSULE PO SCH (05:00)
[2019-06-18] MEDS ORDERED: chlordiazePOXIDE HCL 10 MG CAPSULE PO ONE (05:00)
== END 2019-06-15 08:36 | DRG 774 ==
LOC: YASAS 14:30 → Y6N 19:18
PROVIDERS: ADMIT Surgery; ATTEND Surgery
PROC: HZ2ZZZZ Detoxification Services for Substance Abuse Treatment (ICD-10-PCS; principal; 2019-06-13)
DX: F10.230 Alcohol dependence with withdrawal, uncomplicated (principal); F14.20 Cocaine dependence, uncomplicated; F17.210 Nicotine dependence, cigarettes, uncomplicated; F19.24 Other psychoactive substance dependence with psychoactive substance-induced mood disorder; D64.9 Anemia, unspecified; B37.2 Candidiasis of skin and nail
CPT/HCPCS: 36415; 80053; 85027; 86480; 86593

== ENCOUNTER 2019-06-14 13:49 | Inpatient (IN) | payer SELFPAY ==
--- NOTE | 2019-06-14 14:23 | PDOC ---
History of Present Illness - General Chief Complaint: Abnormal Lab Results (Outside) Stated Complaint: SENT FOR LOW HEMOGLOBIN Time Seen by Provider: 06/14/19 14:22 Past History - Past Medical History Allergies/Adverse Reactions: Allergies Allergy/AdvReac Type Severity Reaction Status Date / Time No Known Allergies Allergy Verified 06/14/19 14:07 Home Medications: Ambulatory Orders NK [No Known Home Medication] 01/12/17 Anemia: No Asthma: No Cancer: No Cardiac Disorders: No CVA: No COPD: No CHF: No Dementia: No Diabetes: No GI Disorders: No Disorders: No HTN: No Hypercholesterolemia: No Kidney Stones: No Liver Disease: No Seizures: No Thyroid Disease: No - Surgical History Abdominal Surgery: No Appendectomy: No Cardiac Surgery: No Cholecystectomy: No Lung Surgery: No Neurologic Surgery: No Orthopedic Surgery: No - Reproductive History Testicular Surgery: No - Suicide/Smoking/Psychosocial Hx Smoking History: Unknown if ever smoked Have you smoked in the past 12 months: No Number of Cigarettes Smoked Daily: 20 If you are a former smoker, when did you quit?: 08/2016 Cigars Per Day: 0 Information on smoking cessation initiated: No 'Breaking Loose' booklet given: 06/13/19 Hx Alcohol Use: No Drug/Substance Use Hx: No Substance Use Type: Alcohol, Cocaine Hx Substance Use Treatment: Yes ([facility]) *Physical Exam - Vital Signs Last Vital Signs Temp Pulse Resp BP Pulse Ox 98.0 F 75 16 120/76 100 06/14/19 14:04 06/14/19 14:04 06/14/19 14:04 06/14/19 14:04 06/14/19 14:04 ED Treatment Course - LABORATORY CBC & Chemistry Diagram: 06/14/19 15:15 06/14/19 15:15 Medical Decision Making - Medical Decision Making 06/14/19 15:50 29 y/o M with hx EtOH use disorder presenting for evaluation after low hemoglobin <7.0, asymptomatic at this time. Plan: CBC CMP Type and Screen PT/INR, PTT Jose-Ness ointment for mild shoulder pain Ice pack for mild shoulder pain Dispo: Pending Hemoglobin result --- Hg - 6.4, plan for transfusion, inpatient admission MCV - 63 Low MCV not consistent with acute blood loss anemia, concern for other etiology/hereditary form of anemia 06/14/19 17:02 Patient admitted. ECG reviewed: Sinus bradycarda. Diffuse peaked T waves. QRS - 98, QTc - 370
[2019-06-14] MEDS ORDERED: METHYL SALICYLATE/MENTHOL OINT 30 GM TUBE TP ONE (14:55)
[2019-06-14 15:20] LABS: BASO % 1.8 % (0-2.0); EOS % 8.8 % (0-4.5); HEMATOCRIT 21.9 % (35.4-49); LYMPH % 29.2 % (8-40); MCHC 29.4 g/dl (32.0-35.9); MEAN CELL VOLUME 63.1 fl (80-96); MEAN PLT VOLUME 8.4 fl (7.5-11.1); MONO % 9.5 % (3.8-10.2); NEUT % 50.7 % (42.8-82.8); PLATELET COUNT 361 K/MM3 (134-434); RBC 3.47 M/mm3 (4.00-5.60); RDW 19.6 % (11.9-15.9); WHITE BLOOD COUNT 6.2 K/mm3 (4.0-10.0)
[2019-06-14 15:24] LABS: MCH 18.5 pg (25.7-33.7)
[2019-06-14 15:25] LABS: HEMOGLOBIN 6.4 GM/dL (11.7-16.9)
[2019-06-14 15:33] LABS: INR 1.08 (0.83-1.09); PROTHROMBIN TIME (PATIENT) 12.8 SEC (9.7-13.0)
[2019-06-14 15:35] LABS: ACTIVATED PTT 23.9 SECONDS (25.2-36.5)
[2019-06-14 15:47] LABS: ALBUMIN 3.9 g/dl (3.4-5.0); BILIRUBIN,TOTAL 0.2 mg/dL (0.2-1); BLOOD UREA NITROGEN 15.9 mg/dL (7-18); CALCIUM 9.2 mg/dL (8.5-10.1); CREATININE 1.1 mg/dL (0.55-1.3); POTASSIUM 4.5 mmol/L (3.5-5.1); TOT PROT 7.3 g/dl (6.4-8.2)
[2019-06-14 15:55] LABS: ANISOCYTOSIS 1+; MACROCYTOSIS 0; OVALOCYTE 1+; PLATELET ESTIMATE NORMAL
--- NOTE | 2019-06-14 16:07 | PDOC ---
Documentation entered by Rogelio Franklin SCRIBE, acting as scribe for Rosendo Amanda MD. Rosnedo Amanda MD: This documentation has been prepared by the Rigoberto watson Daniel, SCRIBE, under my direction and personally reviewed by me in its entirety. I confirm that the documentation accurately reflects all work, treatment, procedures, and medical decision making performed by me. Attending Attestation - Resident Resident Name: JohnmillyMicah - ED Attending Attestation I have performed the following: I have examined & evaluated the patient, The case was reviewed & discussed with the resident, I agree w/resident's findings & plan, Exceptions are as noted - HPI HPI: 06/14/19 14:43 The patient is a 29 year old male with a past medical history of anemia (pt does not know why) sent in today from [facility] for evaluation of low hemoglobin. The patient reports that he was at [facility] for alcohol detox and requested a medical work up due to a left shoulder injury at work. [facility] sent the patient in due to a hemoglobin count of 6.6. He denies ever needing a transfusion before. Patient denies headache, lightheadedness. Denies fever, chills. Denies chest pain, shortness of breath. Denies nausea, vomiting, diarrhea, abdominal pain. Allergies: NKA - Physicial Exam PE: 06/14/19 14:43 GENERAL: Awake, alert, and fully oriented, in no acute distress. Appears pale HEAD: No signs of trauma EYES: PERRLA, EOMI, sclera anicteric, conjunctiva clear ENT: Auricles normal inspection, hearing grossly normal, nares patent, oropharynx clear without exudates. Moist mucosa NECK: Normal ROM, supple, no lymphadenopathy, JVD, or masses LUNGS: Breath sounds equal, clear to auscultation bilaterally. No wheezes, and no crackles HEART: Regular rate and rhythm, normal S1 and S2, no murmurs, rubs or gallops ABDOMEN: Soft, nontender, normoactive bowel sounds. No guarding, no rebound. No masses EXTREMITIES: Normal range of motion, no edema. No clubbing or cyanosis. No cords , erythema, or tenderness BACK: No midline spinal tenderness in cervical/thoracic/lumbar region NEUROLOGICAL: Normal speech, cranial nerves intact, 5/5 strength in all 4 extremities, normal sensation to light touch in all 4 extremities, normal cerebellar exam, normal gait, normal reflexes and tone SKIN: Warm, Dry, normal turgor, no rashes or lesions noted. - Medical Decision Making 06/14/19 16:06 CBC WBC 6.2 K/mm3 (4.0-10.0) 06/14/19 15:15 RBC 3.47 M/mm3 (4.00-5.60) L 06/14/19 15:15 Hgb 6.4 GM/dL (11.7-16.9) L* 06/14/19 15:15 Hct 21.9 % (35.4-49) L 06/14/19 15:15 MCV 63.1 fl (80-96) L 06/14/19 15:15 MCH 18.5 pg (25.7-33.7) L 06/14/19 15:15 MCHC 29.4 g/dl (32.0-35.9) L 06/14/19 15:15 RDW 19.6 % (11.9-15.9) H 06/14/19 15:15 Plt Count 361 K/MM3 (134-434) 06/14/19 15:15 MPV 8.4 fl (7.5-11.1) 06/14/19 15:15 Absolute Neuts (auto) 3.1 K/mm3 (1.5-8.0) 06/14/19 15:15 Neutrophils % 50.7 % (42.8-82.8) 06/14/19 15:15 Lymphocytes % 29.2 % (8-40) 06/14/19 15:15 Monocytes % 9.5 % (3.8-10.2) 06/14/19 15:15 Eosinophils % 8.8 % (0-4.5) H 06/14/19 15:15 Basophils % 1.8 % (0-2.0) 06/14/19 15:15 Nucleated RBC % 0 % (0-0) 06/14/19 15:15 Hypochromia 2+ 06/14/19 15:15 Platelet Estimate Normal 06/14/19 15:15 Polychromasia 1+ 06/14/19 15:15 Poikilocytosis 1+ 06/14/19 15:15 Anisocytosis 1+ 06/14/19 15:15 Microcytosis 2+ 06/14/19 15:15 Macrocytosis 0 06/14/19 15:15 Ovalocytes 1+ 06/14/19 15:15 29yo M presents to the ED with anemia to 6.6 on outpt labs Rpt hgb 6.4 here Pt is HDS Plan for guaiac, prbc transfusion, admission 06/14/19 16:[address] Vianney Baldwin, pt accepted for admission to med/surg Case discussed in detail with admitting physician including history, physical exam and ancillary studies. Admitting physician has assumed care for the patient, will follow all pending diagnostics and will complete the evaluation and treatment.
[2019-06-14] MEDS ORDERED: IRON SUCROSE INJECTION 200 MG in SODIUM CHLORIDE 90 ML IVPB ONE (16:54)
[2019-06-14] MEDS ORDERED: chlordiazePOXIDE HCL 25 MG CAPSULE PO PRN (18:30)
--- NOTE | 2019-06-14 18:34 | PN ---
Teaching Attending Note Name of Resident: Vianney Baldwin ATTENDING PHYSICIAN STATEMENT I saw and evaluated the patient. I reviewed the resident's note and discussed the case with the resident. I agree with the resident's findings and plan as documented. SUBJECTIVE: CC: anemia HPI: 29 y/o man with h/o polysubstance abuse ( ETOh and cocaine) , who presented from [facility] with anemia patient presented to [facility] yesterday. He was started on detox protocol with Librium . Blood work today revealed Hb of 6.6 so patient was transferred for evaluation . he admits to [facility] for about 3 months. blood is sometimes accompanied by stool and some times not. He reports constipation and straining. He denies any ABd or rectal pain with the bleeding. No h/o GI bleed before. and he is not sure if he was diagnosed wit anemia before. He denies any hematemesis. has PURCELL otherwise , no SOB or CP or palpitations or light headedness or syncope. last rectal bleed was 2 weeks ago. No family hx of anemia of GI bleed Last drink and cocaine use was 2 days ago prior to his presentation to [facility]. He is hungry and wants to eat OBJECTIVE: NAD , flat affect. HEENT: MMM, pale conjunctivae and MM. no faci ldroop, round equal pupils, reactive to light. CV: RRR, no MRG Lungs: CATB Abd: soft, NT, ND , NL BS Ext : no edema He declined rectal exam ASSESSMENT AND PLAN: 29 y/o man with h/o polysubstance abuse ( ETOH and cocaine) , who presented from [facility] with anemia. 1- Microcytic anemia: likely due to chronic GI bleed vs nutritional deficiency. source could be hemorrhoids vs diverticular Vs AVM. He is alcoholic, so Upper GI is not completely excluded . last hb in 2017 was NL - check iron studies before transfusion - transfuse RBC - GI consult -OB neg. declined Rectal exam. but first OB in ER was neg. will repeat - liquid diet - PPI 2- ETOH abuse: was started on detox protocol in [facility] yesterday. - cont detox with librium - No signs of Wernike's - start thiamin and folate 3- SCds for DVT px
--- NOTE | 2019-06-14 18:45 | HP ---
CHIEF COMPLAINT: anemia PCP: none HISTORY OF PRESENT ILLNESS: Patient is a 29 yo M with pmhx of substance abuse (alcohol, cocaine), presenting today from [facility] with anemia. He was found to have a Hgb of 6.6 on routine lab work. He says he noticed bright red blood with clots in his stool a few weeks ago. He said blood in stool has been going on for a few months. He denies rectal pain, hemorrhoids. He does not follow a doctor but says he was told he was anemic in the last year or 2. Patient denies symptoms including abdominal pain, chest pain, hematemesis, sob, dizziness, nausea, vomiting, fevers chills. ER course was notable for: (1) 6.4/21.9 H&H (2) FOBT negative PAST SURGICAL HISTORY: denies Social History: Smokin PPD Alcohol: daily drinker 1 pint per day. Drugs: cocaine Family History: Mother with brain cancer. @ 54 Allergies No Known Allergies Allergy (Verified 06/14/19 14:07) HOME MEDICATIONS: Home Medications Medication Instructions Recorded NK [No Known Home Medication] 01/12/17 REVIEW OF SYSTEMS CONSTITUTIONAL: Absent: fever, chills, diaphoresis, generalized weakness, malaise, loss of appetite, weight change HEENT: Absent: rhinorrhea, nasal congestion, throat pain, throat swelling, difficulty swallowing, mouth swelling, ear pain, eye pain, visual changes CARDIOVASCULAR: Absent: chest pain, syncope, palpitations, irregular heart rate, lightheadedness , peripheral edema RESPIRATORY: Absent: cough, shortness of breath, dyspnea with exertion, orthopnea, wheezing, stridor, hemoptysis GASTROINTESTINAL: Absent: abdominal pain, abdominal distension, nausea, vomiting, diarrhea, constipation, melena, hematochezia GENITOURINARY: Absent: dysuria, frequency, urgency, hesitancy, hematuria, flank pain, genital pain MUSCULOSKELETAL: Absent: myalgia, arthralgia, joint swelling, back pain, neck pain SKIN: Absent: rash, itching, pallor HEMATOLOGIC/IMMUNOLOGIC: Absent: easy bleeding, easy bruising, lymphadenopathy, frequent infections ENDOCRINE: Absent: unexplained weight gain, unexplained weight loss, heat intolerance, cold intolerance NEUROLOGIC: Absent: headache, focal weakness or paresthesias, dizziness, unsteady gait, seizure, mental status changes, bladder or bowel incontinence PSYCHIATRIC: Absent: anxiety, depression, suicidal or homicidal ideation, hallucinations. PHYSICAL EXAMINATION Vital Signs - 24 hr 06/14/19 14:04 Temperature 98.0 F Pulse Rate 75 Respiratory 16 Rate Blood Pressure 120/76 O2 Sat by Pulse 100 Oximetry (%) GENERAL: pale appearing, in NAD HEAD: Normal with no signs of trauma. EYES: Pupils equal, round and reactive to light, pale conjunctiva EARS, NOSE, THROAT: Moist mucous membranes. NECK: Normal range of motion, supple without lymphadenopathy, JVD, or masses. LUNGS: Breath sounds equal, clear to auscultation bilaterally. No wheezes, and no crackles. HEART: RRR, no MGR ABDOMEN: Soft, nontender, not distended, normoactive bowel sounds, no guarding, no rebound, no masses. LOWER EXTREMITIES: 2+ pulses, warm, well-perfused. No calf tenderness. No peripheral edema. NEUROLOGICAL: Cranial nerves II-XII intact. Normal speech. Normal gait. Refused rectal exam Laboratory Results - last 24 hr 06/14/19 06/14/19 06/14/19 15:15 15:15 15:15 WBC 6.2 RBC 3.47 L Hgb 6.4 L* Hct 21.9 L MCV 63.1 L MCH 18.5 L MCHC 29.4 L RDW 19.6 H Plt Count 361 MPV 8.4 Absolute Neuts (auto) 3.1 Neutrophils % 50.7 Lymphocytes % 29.2 Monocytes % 9.5 Eosinophils % 8.8 H Basophils % 1.8 Nucleated RBC % 0 Hypochromia 2+ Platelet Estimate Normal Polychromasia 1+ Poikilocytosis 1+ Anisocytosis 1+ Microcytosis 2+ Macrocytosis 0 Ovalocytes 1+ Retic Count PT with INR INR PTT (Actin FS) Cancelled Sodium 141 Potassium 4.5 Chloride 108 H Carbon Dioxide 28 Anion Gap 5 L BUN 15.9 Creatinine 1.1 Est GFR (CKD-EPI)AfAm 103.13 Est GFR (CKD-EPI)NonAf 88.98 Random Glucose 96 Calcium 9.2 Iron Ferritin Total Bilirubin 0.2 AST 27 ALT 23 Alkaline Phosphatase 73 Total Protein 7.3 Albumin 3.9 Stool Occult Blood Blood Type Antibody Screen Crossmatch ASSESSMENT/PLAN: 29 y/o man with h/o polysubstance abuse ( ETOH and cocaine) , who presented from [facility] with anemia. #Microcytic Anemia likely from Lower GI blood loss -upper GI bleed cannot be ruled out due to alcohol abuse -Hgb in 2017 around 11. -Protonix 40mg IV BID -Iron studies -IV Iron -2 U PRBC ordered -FOBT neg #ETOH abuse -Started detox yesterday at [facility]. -Cont. detox w/ Librium protocol -start thiamine, folate #Dvt ppx EAB Visit type - Emergency Visit Emergency Visit: Yes ED Registration Date: 06/14/19 Care time: The patient presented to the Emergency Department on the above date and was hospitalized for further evaluation of their emergent condition. - New Patient This patient is new to me today: Yes Date on this admission: 06/14/19 - Critical Care Critical Care patient: No ATTENDING PHYSICIAN STATEMENT I saw and evaluated the patient. I reviewed the resident's note and discussed the case with the resident. I agree with the resident's findings and plan as documented. SUBJECTIVE: OBJECTIVE: ASSESSMENT AND PLAN:
[2019-06-14] MEDS ORDERED: chlordiazePOXIDE 5 MG CAPSULE PO PRN (18:46)
[2019-06-14] MEDS ORDERED: chlordiazePOXIDE HCL 25 MG CAPSULE ONE (20:30)
[2019-06-14] MEDS: chlordiazePOXIDE HCL 25 MG CAPSULE PO SCH (20:30)
[2019-06-14] MEDS ORDERED: chlordiazePOXIDE HCL 25 MG CAPSULE PO SCH (21:00)
[2019-06-14] MEDS ORDERED: PANTOPRAZOLE SODIUM 40 MG/100 ML BAG IVPB ONE (21:13)
[2019-06-14] MEDS: PANTOPRAZOLE SODIUM 40 MG VIAL IVPUSH SCH (21:18)
[2019-06-14] MEDS ORDERED: THIAMINE HCL 100 MG TABLET (FP) PO SCH (22:00)
[2019-06-15 02:43] VITALS: BMI 33.0
[2019-06-15] MEDS: chlordiazePOXIDE HCL 25 MG CAPSULE PO SCH ×2 (05:00→07:10)
[2019-06-15 08:58] LABS: BASO % 1.6 % (0-2.0); HEMATOCRIT 24.7 % (35.4-49); HEMOGLOBIN 7.5 GM/dL (11.7-16.9); LYMPH % 19.9 % (8-40); MCH 20.1 pg (25.7-33.7); MCHC 30.4 g/dl (32.0-35.9); MEAN CELL VOLUME 65.9 fl (80-96); MEAN PLT VOLUME 7.7 fl (7.5-11.1); MONO % 8.2 % (3.8-10.2); NEUT % 63.3 % (42.8-82.8); PLATELET COUNT 270 K/MM3 (134-434); RBC 3.75 M/mm3 (4.00-5.60); RDW 21.8 % (11.9-15.9); WHITE BLOOD COUNT 8.5 K/mm3 (4.0-10.0)
[2019-06-15 09:15] LABS: ALBUMIN 3.7 g/dl (3.4-5.0); BILIRUBIN,TOTAL 0.4 mg/dL (0.2-1); BLOOD UREA NITROGEN 12.4 mg/dL (7-18); CALCIUM 8.8 mg/dL (8.5-10.1); POTASSIUM 4.2 mmol/L (3.5-5.1); TOT PROT 6.8 g/dl (6.4-8.2)
[2019-06-15] MEDS ORDERED: FOLIC ACID 1 MG TABLET (FP) PO SCH ×2 (10:00)
[2019-06-15] MEDS ORDERED: THIAMINE HCL 100 MG TABLET (FP) PO SCH (10:00)
[2019-06-15 10:04] VITALS: BP 113/71; PULSE 57; TEMP 98.6
[2019-06-15] MEDS: PANTOPRAZOLE SODIUM 40 MG VIAL IVPUSH SCH (10:05)
--- NOTE | 2019-06-15 11:38 | EKG ---
Test Reason : Blood Pressure : / mmHG Vent. Rate : 056 BPM Atrial Rate : 056 BPM P-R Int : 148 ms QRS Dur : 098 ms QT Int : 384 ms P-R-T Axes : 018 066 042 degrees QTc Int : 370 ms SINUS BRADYCARDIA WITH SINUS ARRHYTHMIA EARLY REPOLARIZATION OTHERWISE NORMAL ECG WHEN COMPARED WITH ECG OF 05-AUG-2017 13:38, NO SIGNIFICANT CHANGE WAS FOUND Confirmed by MELISSA NORMAN, ALICIA ([id number]) on 06/15/2019 11:37:58 AM Referred By: Confirmed By:ALICIA TORRES MD
--- NOTE | 2019-06-15 15:23 | DS ---
Physical Examination Vital Signs: Vital Signs Temperature 98.6 F 06/15/19 10:00 Pulse Rate 57 L 06/15/19 10:00 Respiratory Rate 06/15/19 10:00 Blood Pressure 113/71 06/15/19 10:00 O2 Sat by Pulse Oximetry (%) 100 06/15/19 02:00 Findings/Remarks: no pain . feels better PE NAD , flat affect. HEENT: MMM, pale conjunctivae and MM. . CV: RRR, no MRG Lungs: CATB Abd: soft, NT, ND , NL BS Ext : no edema Labs: CBC, BMP 06/15/19 08:00 06/15/19 08:00 Discharge Summary Reason For Visit: ANEMIA Hospital Course: 29 y/o man with h/o polysubstance abuse ( ETOH and cocaine) , who presented from [facility] with anemia. it was thought to be due to rectal bleed ( reported BRBPR x 3 months ) . he was give PRBCs and IV iron as iron stuidies showed very low ferritin he was started on detox protocol. he did not want to wait for GI ro get any eval here. he understands the risk of dissiness, falls, and even . this was d/w him signed out AMA . he is capable of making decisions Condition: Stable - Instructions Diet, Activity, Other Instructions: please follow with GI doctor dr. Brown to evaluate you gto bleeding follow with hematology dr. See for iron infusion take iron three times a day take colace for constipation return to ER, with any light headedness, or painor bleeding you need to conintue your detox at [facility] Referrals: Xavi Brown MD [Staff Physician] - 1 Week Ramon See MD [Staff Physician] - Disposition: AGAINST MEDICAL ADVICE - Home Medications Comprehensive Discharge Medication List: Ambulatory Orders Docusate Sodium [Colace] 100 mg PO DAILY #30 capsule 06/15/19 Ferrous Sulfate 325 mg PO TID #90 tablet 06/15/19 Folic Acid - 1 mg PO DAILY tablet 06/15/19 Thiamine HCl [Vitamin B1 -] 100 mg PO DAILY tablet 06/15/19 This patient is new to me today: No Emergency Visit: Yes ED Registration Date: 06/14/19 Care time: The patient presented to the Emergency Department on the above date and was hospitalized for further evaluation of their emergent condition. Critical Care patient: No - Discharge Referral Referred to [facility] Med P.C.: No
[2019-06-16] MEDS ORDERED: chlordiazePOXIDE HCL 25 MG CAPSULE PO SCH (05:00)
[2019-06-16] MEDS ORDERED: chlordiazePOXIDE 5 MG CAPSULE PO SCH (05:00)
[2019-06-17] MEDS ORDERED: chlordiazePOXIDE 5 MG CAPSULE PO PRN ×2
[2019-06-17] MEDS ORDERED: chlordiazePOXIDE 5 MG CAPSULE PO SCH ×2 (05:00)
[2019-06-18] MEDS ORDERED: chlordiazePOXIDE 5 MG CAPSULE PO SCH (05:00)
[2019-06-18] MEDS ORDERED: chlordiazePOXIDE 5 MG CAPSULE PO ONE (05:00)
[2019-06-19] MEDS ORDERED: chlordiazePOXIDE 5 MG CAPSULE PO ONE (05:00)
== END 2019-06-15 10:09 | disposition left against medical advice (07) | DRG 663 ==
LOC: JER 13:49 → JERBED 15:52 → J5S 06-15 00:10
PROVIDERS: ADMIT Internal Medicine; ATTEND Internal Medicine
PROC: 30233N1 Transfusion of Nonautologous Red Blood Cells into Peripheral Vein, Percutaneous Approach (ICD-10-PCS; principal; 2019-06-14)
DX: D50.0 Iron deficiency anemia secondary to blood loss (chronic) (principal); K62.5 Hemorrhage of anus and rectum; D50.9 Iron deficiency anemia, unspecified; F10.10 Alcohol abuse, uncomplicated; F14.10 Cocaine abuse, uncomplicated
CPT/HCPCS: 36415; 36430; 36511; 80053; 82272; 82728; 83540; 83550; 84466; 85025; 85044; 85610; 85730; 86850; 86900; 86901; 86922; 93005; 93010; 99285-25; J1756; P9038; P9058

== ENCOUNTER 2019-06-15 10:53 | Inpatient (IN) | payer OTHER ==
--- NOTE | 2019-06-15 11:14 | PN ---
[facility] Progress Note Note: see note documnted from prior admission note pt discharged erroneously discharged
[2019-06-15 11:34] VITALS: BMI 32.1
[2019-06-15] MEDS ORDERED: MELATONIN 5 MG TABLETS PO PRN (11:37)
[2019-06-15] MEDS ORDERED: BISMUTH SUBSALICYLATE 524 MG/30 ML UD PO PRN (11:37)
[2019-06-15] MEDS ORDERED: MAGNESIUM CITRATE 300 ML BOTTLE PO PRN (11:37)
[2019-06-15] MEDS ORDERED: IBUPROFEN 400 MG TABLET (FP) PO PRN (11:37)
[2019-06-15] MEDS ORDERED: MAG HYDROX/AL HYDROX/SIMETH 30 ML UNIT-DOSE CUP PO PRN (11:37)
[2019-06-15] MEDS ORDERED: hydrOXYzine PAMOATE 25 MG CAPSULE (FP) PO PRN (11:37)
[2019-06-15] MEDS ORDERED: ACETAMINOPHEN 325 MG TABLET (FP) PO PRN ×2 (11:37)
[2019-06-15] MEDS ORDERED: MENTHOL/PHENOL 1 EACH UD MM PRN (11:37)
[2019-06-15] MEDS ORDERED: MAGNESIUM HYDROX 2400MG/30ML ORAL SUSPENSION 30 ML CUP PO PRN (11:37)
[2019-06-15] MEDS: chlordiazePOXIDE HCL 25 MG CAPSULE PO SCH ×4 (12:25→23:17)
--- NOTE | 2019-06-15 12:42 | PN ---
[facility] Progress Note Note: Patient returned to [facility] [place] after he was transferred to [facility] yesterday due to low h/h (anemia). Patient ordered for FESO4 325mg PO TID (for iron deficiency anemia), colace 100mg PO daily (ordered bid by law writer due to constipation effect from ferrous sulfate) and folic acid 1mg PO daily as per discharge note as read by assigned RN.
[2019-06-15] MEDS: DOCUSATE SODIUM 100 MG CAPSULE (FP) PO SCH ×2 (13:30→23:18)
[2019-06-15] MEDS: METHYL SALICYLATE/MENTHOL OINT 30 GM TUBE TP PRN (15:50)
[2019-06-15] MEDS: FERROUS SO4 325 MG TABLET (FP) PO SCH (17:58)
[2019-06-15] MEDS: hydrOXYzine PAMOATE 25 MG CAPSULE (FP) PO PRN (21:42)
[2019-06-15] MEDS: METHOCARBAMOL 500 MG TABLET PO PRN (21:42)
[2019-06-15] MEDS: THIAMINE HCL 100 MG TABLET (FP) PO SCH (23:17)
[2019-06-16] MEDS: chlordiazePOXIDE HCL 10 MG CAPSULE PO SCH ×3 (06:28→16:59)
[2019-06-16] MEDS: FERROUS SO4 325 MG TABLET (FP) PO SCH ×3 (07:57→16:59)
[2019-06-16] MEDS ORDERED: FOLIC ACID 1 MG TABLET (FP) PO SCH (10:00)
[2019-06-16] MEDS ORDERED: PRENATAL VITAMINS W/ FOLIC ACID TABLET (FP) PO SCH (10:00)
[2019-06-16] MEDS: DOCUSATE SODIUM 100 MG CAPSULE (FP) PO SCH ×2 (10:09→22:40)
--- NOTE | 2019-06-16 10:38 | PN ---
S CIWA - CIWA Score Nausea/Vomitin-Mild Nausea/No Vomiting Muscle Tremors: 2 Anxiety: 3 Agitation: 2 Paroxysmal Sweats: 1-Minimal Palms Moist Orientation: 0-Oriented Tacttile Disturbances: 0-None Auditory Disturbances: 0-None Visual Disturbances: 0-None Headache: 1-Very Mild CIWA-Ar Total Score: 10 S Progress Note (SOAP) Subjective: Pt was admitted on 06/13 for AUD and cocaine use. REferred here by legal. Pt was noted to be anemic-hgb 6.6 on routine CBC- sent to [facility]- recieved 2 units PRBC and pt sent back here to continue detox. Pt denies any bleeding, no dark stools. Does not know why he could be anemic. Gave h/o BRBPR to [facility] ER. Pt without complaints today- would like to know his blood count. O: Vital Signs - 24 hr 06/15/19 06/15/19 06/15/19 11:31 13:00 16:39 Temperature 99.5 F 98.1 F 98.2 F Pulse Rate 59 L 46 L 56 L Respiratory 16 18 18 Rate Blood Pressure 134/84 130/87 127/81 06/15/19 06/16/19 06/16/19 21:09 00:30 03:30 Temperature 96.8 F L Pulse Rate 58 L Respiratory 20 18 18 Rate Blood Pressure 143/83 06/16/19 06/16/19 06:00 09:04 Temperature 97.7 F 98.2 F Pulse Rate 55 L 66 Respiratory 18 18 Rate Blood Pressure 139/82 151/75 alert and oriented nl abd a/p: labs ordered for tomorrow continue AUD detox protocol
[2019-06-16] MEDS: METHYL SALICYLATE/MENTHOL OINT 30 GM TUBE TP PRN (13:05)
[2019-06-16] MEDS: hydrOXYzine PAMOATE 25 MG CAPSULE (FP) PO PRN (16:58)
[2019-06-16] MEDS: METHOCARBAMOL 500 MG TABLET PO PRN (16:58)
[2019-06-16] MEDS: THIAMINE HCL 100 MG TABLET (FP) PO SCH (22:41)
[2019-06-17] MEDS: chlordiazePOXIDE HCL 10 MG CAPSULE PO SCH (00:06)
[2019-06-17] MEDS ORDERED: chlordiazePOXIDE HCL 10 MG CAPSULE PO SCH (05:00)
[2019-06-17] MEDS ORDERED: chlordiazePOXIDE HCL 10 MG CAPSULE PO ONE (05:00)
[2019-06-17] MEDS: hydrOXYzine PAMOATE 25 MG CAPSULE (FP) PO PRN (06:41)
[2019-06-17 06:58] VITALS: BP 121/84; PULSE 55; TEMP 97.5
[2019-06-17] MEDS: FERROUS SO4 325 MG TABLET (FP) PO SCH (07:16)
--- NOTE | 2019-06-17 09:28 | DS ---
[facility] Detox Discharge Summary Admission Date: 06/15/19 Discharge Date: 06/17/19 - History Present History: Alcohol Dependence - Physical Exam Results Vital Signs: Vital Signs Temperature 97.5 F L 06/17/19 06:57 Pulse Rate 55 L 06/17/19 06:57 Respiratory Rate 18 06/17/19 06:57 Blood Pressure 121/84 06/17/19 06:57 O2 Sat by Pulse Oximetry (%) - Treatment Hospital Course: Detox Protocol Followed, Detoxed Safely, Responded well, Discharged Condition Good, Rehab Referral Accepted Patient has Accepted a Rehab Referral to[facility] - Medication Discharge Medications: Ambulatory Orders Docusate Sodium [Colace] 100 mg PO DAILY #30 capsule 06/15/19 Ferrous Sulfate 325 mg PO TID #90 tablet 06/15/19 Folic Acid - 1 mg PO DAILY tablet 06/15/19 Thiamine HCl [Vitamin B1 -] 100 mg PO DAILY tablet 06/15/19 - Diagnosis (1) Alcohol dependence with uncomplicated withdrawal Current Visit: Yes Status: Chronic (2) Anemia Current Visit: Yes Status: Acute Qualifiers: Anemia type: unspecified type Qualified Code(s): D64.9 - Anemia, unspecified (3) Cocaine dependence, uncomplicated Current Visit: Yes Status: Chronic (4) Nicotine dependence Current Visit: Yes Status: Chronic Qualifiers: Nicotine product type: cigarettes Substance use status: uncomplicated Qualified Code(s): F17.210 - Nicotine dependence, cigarettes, uncomplicated (5) Opioid dependence with withdrawal Current Visit: Yes Status: Chronic (6) Substance induced mood disorder Current Visit: No Status: Suspected - AMA Did Patient Leave Against Medical Advice: No
[2019-06-17 11:47] LABS: BASO % 1.1 % (0-2.0); EOS % 6.5 % (0-4.5); HEMATOCRIT 27.8 % (35.4-49); HEMOGLOBIN 8.3 GM/dL (11.7-16.9); LYMPH % 23.4 % (8-40); MCH 20.6 pg (25.7-33.7); MCHC 29.9 g/dl (32.0-35.9); MEAN CELL VOLUME 68.9 fl (80-96); MEAN PLT VOLUME 8.7 fl (7.5-11.1); MONO % 8.8 % (3.8-10.2); NEUT % 60.2 % (42.8-82.8); PLATELET COUNT 311 K/MM3 (134-434); RBC 4.04 M/mm3 (4.00-5.60); RDW 23.1 % (11.9-15.9); WHITE BLOOD COUNT 10.7 K/mm3 (4.0-10.0)
[2019-06-18] MEDS ORDERED: chlordiazePOXIDE HCL 10 MG CAPSULE PO PRN
== END 2019-06-17 09:45 | disposition home or self-care (01) | DRG 774 ==
LOC: YASAS 10:53 → Y6N 11:00
PROVIDERS: ADMIT Surgery; ATTEND Surgery
PROC: HZ2ZZZZ Detoxification Services for Substance Abuse Treatment (ICD-10-PCS; principal; 2019-06-15)
DX: F10.230 Alcohol dependence with withdrawal, uncomplicated (principal); F14.20 Cocaine dependence, uncomplicated; F17.210 Nicotine dependence, cigarettes, uncomplicated; F19.24 Other psychoactive substance dependence with psychoactive substance-induced mood disorder; D50.9 Iron deficiency anemia, unspecified
CPT/HCPCS: 36415; 85025